=== PATIENT | female | born 1945 | race Caucasian/White ===

== ENCOUNTER → 2016-03-24 | Outpatient (CLI) | payer MEDICARE ==
--- NOTE | 2016-03-27 09:10 | MM ---
Reason for exam: screening (asymptomatic). Last mammogram was performed 1 year ago. History: Patient is postmenopausal, history of other cancer, and is nulliparous. 2 benign excisional biopsies of the right breast, 1966. Physical Findings: A clinical breast exam by your physician is recommended on an annual basis and results should be correlated with mammographic findings. MG 3D Screening Mammo W/Cad Bilateral CC and MLO view(s) were taken. Prior study comparison: March 15, 2015, bilateral MG screening mammo w CAD. March 13, 2014, bilateral MG screening mammo w CAD. The breast tissue is heterogeneously dense. This may lower the sensitivity of mammography. Finding: There are typically benign calcifications. There is no discrete abnormality. No significant changes in finding since March 15, 2015 and March 13, 2014. ASSESSMENT: Benign, BI-RAD 2 RECOMMENDATION: Routine screening mammogram of both breasts in 1 year.
== END | disposition home or self-care (01) ==
LOC: RADMAMWWP 10:17
PROVIDERS: ATTEND Family Medicine
DX: Z12.31 Encounter for screening mammogram for malignant neoplasm of breast (principal)
CPT/HCPCS: 77052; 77063; G0202

== ENCOUNTER → 2016-09-22 | Outpatient (CLI) | payer MEDICARE ==
--- NOTE | 2016-09-22 13:38 | MR ---
EXAMINATION TYPE: MR knee LT wo con DATE OF EXAM: 09/22/2016 1:29 PM COMPARISON: NONE HISTORY: lt knee pain TECHNIQUE: Multiplanar, multiecho imaging of the left knee is performed without IV contrast. FINDINGS: There is only a small amount of joint fluid. There is grade I to II chondromalacia involving the patellar apex. There is grade II to III chondroma lacia involving the weightbearing surface of the medial femoral condyle. There is grade IV chondromal acia involving the weightbearing surface of the lateral femoral condyle. Both menisci are unremarkable. Both the anterior and the posterior cruciate ligaments are intact. The medial and the lateral collateral ligament complexes are intact. The iliotibial band insertion no rmally upon Gerdy's tubercle. The popliteus muscle and tendon are normal. Both quadriceps and patellar tendons are normal. There is minimal swelling in the Hoffa fat space. IMPRESSION: 1. CHONDROMALACIA DESCRIBED. THERE IS A BILOBED PSEUDOCYST ASSOCIATED WITH THE LATERAL MENISCUS. 2. NO EVIDENCE OF MENISCAL OR LIGAMENTOUS TEAR.
== END | disposition home or self-care (01) ==
LOC: RADMRIMAIN 12:29
PROVIDERS: ATTEND Orthopaedic Surgery
DX: M94.262 Chondromalacia, left knee (principal); M25.862 Other specified joint disorders, left knee

== ENCOUNTER → 2017-04-13 | Outpatient (CLI) | payer MEDICARE ==
--- NOTE | 2017-04-16 10:03 | MM ---
Reason for exam: screening (asymptomatic). Last mammogram was performed 1 year and 1 month ago. History: Patient is postmenopausal, history of other cancer, and is nulliparous. 2 benign excisional biopsies of the right breast, 1966. Physical Findings: A clinical breast exam by your physician is recommended on an annual basis and results should be correlated with mammographic findings. MG 3D Screening Mammo W/Cad Bilateral CC and MLO view(s) were taken. Prior study comparison: March 24, 2016, bilateral MG 3d screening mammo w/cad. March 15, 2015, bilateral MG screening mammo w CAD. The breast tissue is heterogeneously dense. This may lower the sensitivity of mammography. Finding: There are typically benign dystrophic calcifications in both breasts. There is no discrete abnormality. ASSESSMENT: Benign, BI-RAD 2 RECOMMENDATION: Routine screening mammogram of both breasts in 1 year.
== END | disposition home or self-care (01) ==
LOC: RADMAMWWP 09:18
PROVIDERS: ATTEND Family Medicine
DX: Z12.31 Encounter for screening mammogram for malignant neoplasm of breast (principal)
CPT/HCPCS: 77063; 77067

== ENCOUNTER 2017-06-01 09:28 | Day surgery (SDC) | payer MEDICARE ==
[2017-05-31 09:18] VITALS: BMI 32.1
[~2017-06-01 09:28] MED LIST: LACTATED RINGERS 1,000 ML IV ONE; LIDOCAINE 1% 20 ML VIAL (10MG/ML) FOR IV START INTRADERMA PRN
[2017-06-01 09:43] VITALS: RESP 16
[2017-06-01 09:54] VITALS: TEMP 98.4
[2017-06-01] MEDS ORDERED: PROPOFOL 10 MG/ML 20 ML VIAL IV ONE (10:49)
--- NOTE | 2017-06-01 11:06 | P.PCN ---
Date of Procedure: 06/01/17 Procedure(s) Performed: BRIEF HISTORY: Patient is a 72-year-old pleasant white female, scheduled for an elective colonoscopy as a part of as a part of evaluation of prior history of colon polyps. Last colonoscopy was 5 years ago. PROCEDURE PERFORMED: Colonoscopy. PREOPERATIVE DIAGNOSIS: History of colon polyps. IV sedation per Anesthesia. PROCEDURE: After informed consent was obtained, the patient, was brought into the endoscopy unit. IV sedation was administered by Anesthesia under continuous monitoring. Digital rectal examination was normal. Initially the Olympus CF- 160 flexible video colonoscope was then inserted in the rectum, gradually advanced into the cecum without any difficulty. Careful examination was performed as the scope was gradually being withdrawn. Ileocecal valve and the appendiceal orifice were visualized and appeared normal. Prep was excellent. Mucosa of the cecum, ascending colon, transverse colon, descending colon, sigmoid colon, and rectum appeared normal. Scattered sigmoid diverticulosis seen. Retroflexion was performed in the rectum and no lesions were seen. The patient tolerated the procedure well. IMPRESSION: Normal-appearing colon from rectum to cecum with no evidence of colorectal neoplasia. Scattered sigmoidal diverticula cyst. RECOMMENDATIONS: Findings of this examination were discussed with the patient as well as a family. She was advised to have a repeat surveillance colonoscopy in 5 years from now because of the prior history of colon polyps .
[2017-06-01 11:44] VITALS: BP 170/80; PULSE 75
== END 2017-06-01 12:03 | disposition home or self-care (01) ==
LOC: ORWHC2ENDO 09:28
PROVIDERS: ATTEND Internal Medicine Gastroenterology
DX: Z12.11 Encounter for screening for malignant neoplasm of colon (principal); K57.30 Diverticulosis of large intestine without perforation or abscess without bleeding; M19.90 Unspecified osteoarthritis, unspecified site; E07.9 Disorder of thyroid, unspecified; I10 Essential (primary) hypertension; E78.5 Hyperlipidemia, unspecified; Z86.010 Personal history of colon polyps; Z79.899 Other long term (current) drug therapy; Z87.891 Personal history of nicotine dependence
CPT/HCPCS: J2704; G0105; 45378

== ENCOUNTER → 2017-12-21 | Outpatient (CLI) | payer MEDICARE ==
--- NOTE | 2017-12-21 11:49 | XR ---
EXAMINATION TYPE: XR chest 2V DATE OF EXAM: 12/21/2017 COMPARISON: NONE TECHNIQUE: PA and lateral views submitted. HISTORY: Cough and congestion FINDINGS: The lungs are clear and there is no pneumothorax, pleural effusion, or focal pneumonia. No overt fa ilure. Atherosclerotic change aorta. Arthropathy shoulders. Degenerative change of the spine. IMPRESSION: 1. No acute process.
== END | disposition home or self-care (01) ==
LOC: RADXRMAIN 11:26
PROVIDERS: ATTEND Family Medicine
DX: R06.02 Shortness of breath (principal); R05 Cough
CPT/HCPCS: 71046

== ENCOUNTER → 2018-06-03 | Outpatient (CLI) | payer MEDICARE ==
--- NOTE | 2018-06-04 13:59 | MM ---
Reason for exam: screening (asymptomatic). Last mammogram was performed 1 year and 2 months ago. History: Patient is postmenopausal, history of other cancer, and is nulliparous. 2 benign excisional biopsies of the right breast, 1965. Physical Findings: A clinical breast exam by your physician is recommended on an annual basis and results should be correlated with mammographic findings. MG 3D Screening Mammo W/Cad Bilateral CC and MLO view(s) were taken. Prior study comparison: April 13, 2017, bilateral MG 3d screening mammo w/cad. March 24, 2016, bilateral MG 3d screening mammo w/cad. The breast tissue is heterogeneously dense. This may lower the sensitivity of mammography. Benign appearing bilateral calcifications. No suspicious abnormality. No significant changes when compared with prior studies. ASSESSMENT: Benign, BI-RAD 2 RECOMMENDATION: Routine screening mammogram of both breasts in 1 year.
== END | disposition home or self-care (01) ==
LOC: RADMAMWWP 11:28
PROVIDERS: ATTEND Family Medicine
DX: Z12.31 Encounter for screening mammogram for malignant neoplasm of breast (principal)
CPT/HCPCS: 77063; 77067

== ENCOUNTER → 2018-07-22 | Outpatient (CLI) | payer MEDICARE ==
--- NOTE | 2018-07-22 13:02 | XR ---
EXAMINATION TYPE: XR Hip Bilateral Complete DATE OF EXAM: 07/22/2018 CLINICAL HISTORY: pain TECHNIQUE: AP and frogleg views of the bilateral hips are obtained. COMPARISON: None. FINDINGS: There is no acute fracture/dislocation evident. The joint space appears moderately narro wed.. The overlying soft tissue appears unremarkable. IMPRESSION: 1. There is no acute fracture or dislocation. ICD 10 NO FRACTURE, INITIAL EVALUATION
== END | disposition home or self-care (01) ==
LOC: RADXRMAIN 12:01
PROVIDERS: ATTEND Family Medicine
DX: M25.551 Pain in right hip (principal)
CPT/HCPCS: 73521

== ENCOUNTER → 2018-08-05 | Outpatient (CLI) | payer MEDICARE ==
--- NOTE | 2018-08-05 12:56 | XR ---
EXAMINATION TYPE: XR knee complete bilateral DATE OF EXAM: 08/05/2018 COMPARISON: NONE HISTORY: Pain TECHNIQUE: Four views are submitted. FINDINGS: There is moderate to severe bilateral arthropathy with most marked findings involving the patellofemo ral joints. There is small suprapatellar bursal fluid collections bilaterally. No erosive changes. No evidence of acute fracture. IMPRESSION: 1. Moderate to severe arthropathy with a greater involvement of the patellofemoral joints bilaterally . 2. Small suprapatellar bursal fluid collections.
== END | disposition home or self-care (01) ==
LOC: RADXRMAIN 12:14
PROVIDERS: ATTEND Family Medicine
DX: M17.0 Bilateral primary osteoarthritis of knee (principal)

== ENCOUNTER → 2018-09-10 | Outpatient (CLI) | payer MEDICARE ==
--- NOTE | 2018-09-10 15:43 | NM ---
EXAMINATION TYPE: NM bone scan whole body DATE OF EXAM: 09/10/2018 COMPARISON: Bilateral hip and knee radiographs of July 2018 HISTORY: Bilateral hip and knee pain Delayed whole-body scanning was performed following the injection of 24.5 mCi Tc 99m MDP. Images acq uired 3 hours post injection. FINDINGS: There is focal radiotracer uptake within the femoral heads and femoral acetabular joints, right great er than left. There is also focal radiotracer accumulation within the left L5 vertebral body. Focal a ccumulation within the acromioclavicular joints, sternoclavicular joints (right greater than left), u pper and mid thoracic spine, knees, mid feet, wrists, sacroiliac joints, and visualized elbow joints are all likely on a degenerative basis. Accumulation within the right metatarsal phalangeal joint is also likely degenerative. IMPRESSION: 1. Focal radiotracer accumulation within the femoral acetabular joints, right greater than left, is l ikely on a degenerative basis with arthropathy seen on the radiographs of 07/22/2018 however given radi otracer accumulation is most focal within the hips MRI could be performed for further evaluation. 2. Left L5 vertebral body uptake may also be on the basis of degenerative disc disease however correl ation with lumbar spine radiographs is recommended. 3. Degenerative arthropathy within the axial and appendicular skeleton including the knees and an ove rall symmetric distribution.
== END | disposition home or self-care (01) ==
LOC: RADNMMAIN 10:17
PROVIDERS: ATTEND Physical Medicine & Rehabilitation
DX: M12.88 Other specific arthropathies, not elsewhere classified, other specified site (principal); M12.862 Other specific arthropathies, not elsewhere classified, left knee; M12.861 Other specific arthropathies, not elsewhere classified, right knee; R93.7 Abnormal findings on diagnostic imaging of other parts of musculoskeletal system
CPT/HCPCS: 78306; A9503

== ENCOUNTER → 2019-11-06 | Outpatient (CLI) | payer MEDICARE ==
--- NOTE | 2019-11-07 10:02 | MM ---
Reason for exam: screening (asymptomatic). Last mammogram was performed 1 year and 5 months ago. History: Patient is postmenopausal, history of other cancer, and is nulliparous. 2 benign excisional biopsies of the right breast, 1965. Physical Findings: A clinical breast exam by your physician is recommended on an annual basis and results should be correlated with mammographic findings. MG 3D Screening Mammo W/Cad Bilateral CC, MLO, and XCCL view(s) were taken. Prior study comparison: June 03, 2018, bilateral MG 3d screening mammo w/cad. April 13, 2017, bilateral MG 3d screening mammo w/cad. The breast tissue is heterogeneously dense. This may lower the sensitivity of mammography. Stable benign calcifications. There is no discrete abnormality. No significant changes when compared with prior studies. ASSESSMENT: Benign, BI-RAD 2 RECOMMENDATION: Routine screening mammogram of both breasts in 1 year.
== END | disposition home or self-care (01) ==
LOC: RADMAMWWP 14:10
PROVIDERS: ATTEND Family Medicine
DX: Z12.31 Encounter for screening mammogram for malignant neoplasm of breast (principal)
CPT/HCPCS: 77063; 77067

== ENCOUNTER → 2020-02-25 | Outpatient (CLI) | payer MEDICARE ==
[2020-02-25 13:42] VITALS: BP 135/79; PULSE 72; RESP 16; TEMP 98.2
--- NOTE | 2020-02-25 14:24 | P.PAINCN ---
History of Present Illness - Reason for Consult Consult date: 02/25/20 - History of Present Illness This is 75 years old female, with chronic history of severe low back pain with radiation to the buttock area and posterior lateral aspect of her lower extremity, she is diagnosed with lumbar spondylosis and lumbar facet arthropathy, and lumbar degenerative disc disease and lumbar foraminal stenosis, patient hasn't diagnostic medial branch block in the lumbar area at [facility], 2 , she get more than 70% improvement of her low back pain after each block, and she was referred to [facility] to have radiofrequency thermocoagulation of the medial branch lumbar area, patient had 5 days of pain relief after each block, she denies any motor or sensory deficit she denies any fever or night sweats and she had no change in the bowel movement or urination, she continued to ambulate on her own using cane or walker Past Medical History Past Medical History: GERD/Reflux, Hyperlipidemia, Hypertension, Osteoarthritis (OA), Thyroid Disorder Additional Past Medical History / Comment(s): hx goiter History of Any Multi-Drug Resistant Organisms: None Reported Past Surgical History: Breast Surgery, Cholecystectomy Additional Past Surgical History / Comment(s): surgery for ectopic , surgery to remove fibroids from uterus, cyst removed from rt breast Past Anesthesia/Blood Transfusion Reactions: Motion Sickness Additional Past Anesthesia/Blood Transfusion Reaction / Comm: motion sickness when younger, Past Psychological History: No Psychological Hx Reported Smoking Status: Former smoker Past Alcohol Use History: Rare Additional Past Alcohol Use History / Comment(s): quit smoking age late 20's, started smoking age 22 Past Drug Use History: None Reported - Past Family History Brother(s) Family Medical History: Cancer Medications and Allergies Home Medications Medication Instructions Recorded Confirmed Type Levothyroxine Sodium [Synthroid] 125 mcg PO DAILY 05/31/17 06/01/17 History Losartan [Cozaar] 50 mg PO BID 05/31/17 06/01/17 History Multivitamins, Thera [Multivitamin 1 tab PO DAILY 05/31/17 06/01/17 History (formulary)] Simvastatin [Zocor] 20 mg PO HS 05/31/17 06/01/17 History Allergies Allergy/AdvReac Type Severity Reaction Status Date / Time No Known Allergies Allergy Verified 06/01/17 09:45 Physical Exam Vitals: Vital Signs Temp Pulse Resp BP Pulse Ox 12/09/20 13:24 98.2 F 72 16 135/79 97 Intake and Output 02/24/20 02/25/20 02/25/20 22:59 06:59 14:59 Other: Weight 89.811 kg Physical Examinations : -Constitutiona : Cooperative , not in acute distress . -HEENT : nech : supple , no Lymphadenopathy , normal thyroid size . : eyes : no ptosis , no icterus, no photophobia . - neurologic : Cranial nerve II to XII intact , no focal neurological deffecit . -psychatric : alert , oriented X 3 , appropriate affect , intact judgment and insight . -Lymphatic : no Lymphadenopathy . - musculoskeltal : Lumber spine moter stegnth lower extremities ,thigh and legs 5/5 Right side , 5/5 Left side deep tendon reflexes : normal Knee Jerk , normal ankle Jerk lumber facet Loading Test =positive Right , positive Left Range of motion of the lumbar spine Flexion 30 degrees, extension 10 degrees strait leg raising test = positive at 45 degree Fabere test= positive Right , and positive LT . Sever tenderness over the Sacroiliac joint on the Right , and mild tenderness Left sides Gaenslen test= positive right ,and positive left . Seated flexion test= positive right ,and positive Left . Results Comments: MRI of the lumbar spine multilevel lumbar degenerative disc disease multilevel lumbar spondylosis and multilevel lumbar foraminal stenosis Assessment and Plan Plan: Assessment and plan=1-lumbar spondylosis with lumbar facet arthropathy without myelopathy. 2-lumbar degenerative disc disease. 3-lumbar foraminal stenosis. Patient had diagnostic medial branch block lumbar area done at the [facility] x2 , get more than 70% improvement of her low back pain after each block and she would be good candidate to have RFA of the medial branch lumbar area, he shouldn't will be scheduled to have RFA at L3, L4, L5 bilaterally Because of COVID 19 epidemic, she'll wished to delay the procedure for a few weeks Time with Patient: Greater than 30 PQRS Measure Charge Sheet Measure #130: Documentation of Current Meds in Medical Chart: Patient's medications documented in chart Measure #226: Tobacco Use: Screen & Cessation Intervention: Pt not a tobacco user Measure #111: Pneumonia Vaccination: Pneumococcal vaccine administered or previously received Measure #47: Advance Care Plan: Advance care planning discussed & documented, pt chose/unable to give Measure #412: Opioid Treatment Agreement: No documentation of signed opioid treatment agreement Measure #408: Opioid Therapy Follow-up Evaluation: Patient had NO f/u eval minimum every 3 months during opioid therapy Measure #317: Preventitive Care & Scrn High Bld Press & F/U: Normal blood pr essure, f/u not required Measure #128: Body Mass Index (BMI) Screening & Follow-up: BMI documented ABOVE normal parameters - f/u documented Measure #131: Pain Assessment & Follow-up: Pain positive & plan documented, Follow-up scheduled Measure #431: Unhealthy Alcohol Use Preventative Care & Scrn: Patient not identified as an unhealthy alcohol user PQRS Narrative: Smoking Status Former smoker Blood Pressure 135/79 Pain Intensity [Lower Back] 7 Hx Alcohol Use (MH) No Home Medications: Ambulatory Orders Levothyroxine Sodium [Synthroid] 125 mcg PO DAILY 05/31/17 Losartan [Cozaar] 50 mg PO BID 05/31/17 Multivitamins, Thera [Multivitamin (formulary)] 1 tab PO DAILY 05/31/17 Simvastatin [Zocor] 20 mg PO HS 05/31/17
== END | disposition home or self-care (01) ==
LOC: PNWHC3 13:03
PROVIDERS: ATTEND Specialist
DX: M48.061 Spinal stenosis, lumbar region without neurogenic claudication (principal); M51.36 Other intervertebral disc degeneration, lumbar region; M47.816 Spondylosis without myelopathy or radiculopathy, lumbar region; I10 Essential (primary) hypertension; E07.9 Disorder of thyroid, unspecified; Z87.891 Personal history of nicotine dependence; Z79.890 Hormone replacement therapy; Z79.899 Other long term (current) drug therapy
CPT/HCPCS: 99211

== ENCOUNTER → 2020-05-03 | Outpatient (CLI) | payer MEDICARE ==
[2020-05-03 13:44] VITALS: BP 144/84; PULSE 86; RESP 16; TEMP 98
--- NOTE | 2020-05-03 14:42 | P.PN ---
Subjective Progress Note Date: 05/03/20 This is a follow-up visit for this 75 years old female with a chronic history of severe low back pain, he is diagnosed with lumbar spondylosis with lumbar facet arthropathy without myelopathy, and lumbar degenerative disc disease, patient had diagnostic medial branch block lumbar area done at the [facility] and turned x2 , and she got excellent pain relief after each block she had 100% immediate relief of her low back pain after each block, but the pain relief was for short-term only, she supposed RFA of the medial branch lumbar area but she was concerned about Covid 19 infection, for this reason patient did not have the RFA done, and she is here today to schedule it and to have a discussion about the risk versus benefit of the RFA of the medial branch number area, she denies any fever or night sweats she denies any motor or sensory deficits she continue to use Neurontin 600 mg twice a day she denies any side effect of the medication Objective - Vital Signs Vital signs: Vital Signs Temp 98.0 F 05/03/20 13:42 Pulse 86 05/03/20 13:42 Resp 16 05/03/20 13:42 BP 144/84 05/03/20 13:42 Pulse Ox 98 05/03/20 13:42 - Exam -Constitutiona : Cooperative , not in acute distress . -HEENT : nech : supple , no Lymphadenopathy , normal thyroid size . : eyes : no ptosis , no icterus, no p hotophobia . - neurologic : Cranial nerve II to XII intact , no focal neurological deffecit . -psychatric : alert , oriented X 3 , appropriate affect , intact judgment and insight . -Lymphatic : no Lymphadenopathy . - musculoskeltal : Lumber spine moter stegnth lower extremities ,thigh and legs 5/5 Right side , 5/5 Left side deep tendon reflexes : normal Knee Jerk , normal ankle Jerk lumber facet Loading Test =positive Right , positive Left Range of motion of the lumbar spine Flexion 30 degrees, extension 10 degrees strait leg raising test = positive at 45 degree Fabere test= positive Right , and positive LT . Sever tenderness over the Sacroiliac joint on the Right , and mild tenderness Left sides Gaenslen test= positive right ,and positive left . Seated flexion test= positive right ,and positive Left . Assessment and Plan Plan: MRI of the lumbar spine multilevel lumbar degenerative disc disease multilevel lumbar spondylosis and multilevel lumbar foraminal stenosis Assessment and plan=1-lumbar spondylosis with lumbar facet arthropathy without myelopathy. 2-lumbar degenerative disc disease. 3-lumbar foraminal stenosis. Patient had diagnostic medial branch block lumbar area done at the [facility] x2 , she got 100% immediate relief of her low back pain after each block and she would be good candidate to have RFA of the medial branch lumbar area. She will be scheduled to have RFA at L3, L4, L5 bilaterally PQRS Measure Charge Sheet Measure #130: Documentation of Current Meds in Medical Chart: Patient's medications documented in chart Measure #226: Tobacco Use: Screen & Cessation Intervention: Pt not a tobacco user Measure #111: Pneumonia Vaccination: Pneumococcal vaccine administered or previously received Measure #47: Advance Care Plan: Advance care planning discussed & documented, pt chose/unable to give Measure #412: Opioid Treatment Agreement: No documentation of signed opioid treatment agreement Measure #408: Opioid Therapy Follow-up Evaluation: Patient had NO f/u eval minimum every 3 months during opioid therapy Measure #317: Preventitive Care & Scrn High Bld Press & F/U: 144/84 elevated blood pressure, f/u with her primary care Measure #128: Body Mass Index (BMI) Screening & Follow-up: BMI documented ABOVE normal parameters - f/u documented Measure #131: Pain Assessment & Follow-up: Pain positive & plan documented, Follow-up scheduled Measure #431: Unhealthy Alcohol Use Preventative Care & Scrn: Patient not identified as an unhealthy alcohol user PQRS Narrative: Time with Patient: Less than 30
== END | disposition home or self-care (01) ==
LOC: PNWHC3 13:32
PROVIDERS: ATTEND Specialist
DX: M48.061 Spinal stenosis, lumbar region without neurogenic claudication (principal); M51.36 Other intervertebral disc degeneration, lumbar region; M47.816 Spondylosis without myelopathy or radiculopathy, lumbar region
CPT/HCPCS: 99211

== ENCOUNTER 2020-06-11 09:18 | Day surgery (SDC) | payer MEDICARE ==
[2020-06-10 10:57] VITALS: BMI 32.8
[~2020-06-11 09:18] MED LIST changes: -LACTATED RINGERS 1,000 ML IV ONE; +LACTATED RINGERS 1,000 ML IV SCH; -LIDOCAINE 1% 20 ML VIAL (10MG/ML) FOR IV START INTRADERMA PRN
[2020-06-11 09:47] VITALS: TEMP 97.9
[2020-06-11] MEDS ORDERED: LIDOCAINE 1% (10MG/ML) FOR IV START INTRADERMA ONE (09:52)
[2020-06-11] MEDS ORDERED: fentaNYL (PF) 50 MCG/ML 2 ML AMP ONE (09:57)
[2020-06-11] MEDS ORDERED: MIDAZOLAM 2 MG/2 ML VIAL ONE (09:57)
[2020-06-11] MEDS ORDERED: LIDOCAINE 1% INJ 10MG/ML (20 ML MDV) ONE (09:57)
[2020-06-11] MEDS ORDERED: TRIAMCINOLONE ACETONIDE 40 MG/ML 1 ML VIAL ONE (09:57)
[2020-06-11] MEDS ORDERED: ROPIVACAINE 5MG/ML 20ML VIAL ONE (09:57)
--- NOTE | 2020-06-11 10:38 | P.PCN ---
Date of Procedure: 06/11/20 Surgeon: García Gutierrez Pathology: none sent Condition: stable Disposition: PACU Description of Procedure: PREOPERATIVE DIAGNOSIS: Lumbar spondylosis without myelopathy, morbid obesity POSTOPERATIVE DIAGNOSIS: Lumbar spondylosis without myelopathy,morbid obesity PROCEDURES : Bilateral Radiofrequency thermocoagulation L4-L5, and L5-S1 medial branch, with fluoroscopic guidance ANESTHESIA: Local with lidocaine 1% and IV moderate conscious sedation by the anesthesia Department Physician:García Gutierrez MD EBL: Minimal PROCEDURE INDICATION: The patient with low back pain secondary to lumbar facet arthropathy who had more than 50% relief of her pain with previous diagnostic lumbar medial branch block with bupivacaine. PROCEDURE DESCRIPTION / TECHNIQUE: The patient was seen and identified in the preoperative area. Risks, benefits, complications, including but not limited to risk of infection ,bleeding , allergic reactions to the medications and no complete pain relief , and alternatives were discussed with the patient, the patient agreed to proceed with the procedure and signed the consent. IV was started. Vital signs remained stable throughout the procedure. Patient was taken to the OR and time out was completed. The patient was placed in the prone position on the procedure table. The lumber area was prepped and draped in the usual sterile fashion. . Vital signs were closely monitored during the procedure .IV sedation was used during the procedure to decrease patients anxiety. The target points were identified as follows: For the L5-S1 level which corresponds to the dorsal ramus of L5 the target point was at the superior medial aspect of the sacral ala on both sides of the spine on the AP view of fluoroscopy and for the L3, and L4 medial branches the target points were at the connection between the transverse process and the superior articular process of L4, and L5 vertebra respectively on the oblique view of fluoroscopy. skin was marked, and localized with 1% lidocaineat these points. Subsequently, an 18 -ad radiofrequency needles with a 10-mm curved active tips were advanced guided by fluoroscopy to each of the target points mentioned above in a superior medial direction to get the active tips as parallel as possible to the medial branches tracks. AP, oblique, and lateral views of fluoroscopy were used to verify needle tips position. Each level then underwent motor testing at 2.5 Hz and 0 to 3 volt with local stimulation, but no radicular symptoms down the legs. I then injected 1 mL of lidocaine 1% in each needle before starting radiofrequency thermocoagulation at 80 degrees celsius for 90 seconds. After that I injected 1 ml of PF Ropivacaine 0.5%(3 mls) with 40 mg of Kenalog, 1 mL of this mixture was given in each needle before taking the needles out intact. The same procedure was repeated on the opposite side. At the end of the procedure, the skin was cleansed and bandages were applied. A copy of needle placement fluoroscopy was saved on the C-arm machine. COMPLICATIONS: No acute complications. DISPOSITION / PLANS: The patient was placed in a supine position and transferred to the recovery area in a stable condition for observation and was discharged from the recovery room after meeting discharge criteria. Home discharge instructions given to the patient by the staff. The patient was reexamined prior to discharge. The patient will schedule a follow up in the clinic in 2-4 weeks.
[2020-06-11] MEDS ORDERED: IV FLUID CONTINUATION 1,000 ML IV ONE (10:43)
[2020-06-11 10:46] VITALS: RESP 16
[2020-06-11] MEDS ORDERED: ONDANSETRON 4 MG/2 ML VIAL ONE (10:46)
[2020-06-11] MEDS ORDERED: ONDANSETRON 4 MG/2 ML VIAL IVP ONE (10:48)
--- NOTE | 2020-06-11 10:54 | FL ---
EXAMINATION TYPE: FL guided pain mgmt statistic DATE OF EXAM: 06/11/2020 HISTORY: Fluoroscopy time 52 seconds of fluoroscopy provided. IMPRESSION: 1. Fluoroscopy time.
[2020-06-11 11:00] VITALS: BP 138/82; PULSE 73
== END 2020-06-11 11:16 | disposition home or self-care (01) ==
LOC: ORPAIN 09:18
PROVIDERS: ATTEND Anesthesiology
DX: M47.816 Spondylosis without myelopathy or radiculopathy, lumbar region (principal); E66.01 Morbid (severe) obesity due to excess calories; Z68.34 Body mass index [BMI] 34.0-34.9, adult; I10 Essential (primary) hypertension; E78.5 Hyperlipidemia, unspecified; E07.9 Disorder of thyroid, unspecified; M19.90 Unspecified osteoarthritis, unspecified site; K21.9 Gastro-esophageal reflux disease without esophagitis; Z79.1 Long term (current) use of non-steroidal anti-inflammatories (NSAID); Z79.890 Hormone replacement therapy; Z79.899 Other long term (current) drug therapy
CPT/HCPCS: 64635; 64636; J2250; J3301; J2405; J2001; J3010; J2795

== ENCOUNTER → 2020-07-26 | Outpatient (CLI) | payer MEDICARE ==
[2020-07-26 13:24] VITALS: BP 134/75; PULSE 95; RESP 16; TEMP 98.2
--- NOTE | 2020-07-26 13:58 | P.PN ---
Subjective Progress Note Date: 07/26/20 Noemi presents for follow-up today after having a radiofrequency ablation of the lumbar spine. She reports that she still having same type of pain in the low back without any radiation into the lower extremities. The pain she describes as aching which is worse with standing and sitting, worse with standing from a seated position. She denies any radicular symptoms down her leg. She has chronic right leg pain over the calf and boss region which she attributes to injuries a child. Reports that the medial branch injections be performed prior to the radiofrequency ablation were helpful. She reports she has some difficulty remembering that time because of the code endemic. Overall unfortunately in the radiofrequency ablation lumbar spine has not been successful. We will not repeat that moving forward. He currently continues to use a walker for ambulation. Review of Systems: Denies any New chest pain, short of breath, Nausea/vomitting, abdominal pain, bowel or bladder incontinence, or any overt new neurologic symptoms in the upper or lower extremities outside of what is noted in the HPI Objective - Vital Signs Vital signs: Vital Signs Temp 98.2 F 07/26/20 13:22 Pulse 95 07/26/20 13:22 Resp 16 07/26/20 13:22 BP 134/75 07/26/20 13:22 Pulse Ox 98 07/26/20 13:22 - Exam General: Awake and alert oriented 3 no distress, morbidly obese Respiratory exam: No audible wheezing no accessory muscle usage Cardiovascular exam: regular rate, palpable bilateral pulses, no lower extremity edema Cervical spine: Normal alignment, Spurling's negative, facet loading negative, Shipping Agent strength is 5/5, combs negative Lumbar spine: Loss of lumbar lordosis, normal alignment, tender to palpation over bilateral paraspinal muscles, facet loading is positive bilaterally. Straight leg raise is negative. Limited range of motion due to pain with flexion, extension and side bending. Sacroiliac joints: Under to palpation over the bilateral SI joints, Dioni test positive bilateral, Gaenslen test positive bilateral Neuro exam: Normal sensation in bilateral upper extremities, deep tendon reflexes are 2+ bilateral upper extremities. Normal sensation in bilateral lower extremities. 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 I will offer her a SI joint injection bilaterally. We discussed injection in detail. I've given her information about injection per her request. We discussed that the injection uses a local anesthetic and steroid solution and may increase her blood sugars slightly. He wants to move forward with the injection in a few weeks. I've offered to do it whenever she is comfortable moving forward. We will follow-up the patient has needed. I have spent 24 minutes on patient care today. The time was used to review the medical records including relevant urine studies and Prescription history (MAPs), review of the available imaging, evaluation and examination of the patient, coordination of care with the medical staff and if applicable referring physicians, as well as creation of the medical record. Maps were checked and appropriate
== END ==
LOC: PNWHC3 13:11
PROVIDERS: ATTEND Anesthesiology
DX: M47.26 Other spondylosis with radiculopathy, lumbar region (principal); M46.1 Sacroiliitis, not elsewhere classified; E66.01 Morbid (severe) obesity due to excess calories; Z68.32 Body mass index [BMI] 32.0-32.9, adult; Z87.891 Personal history of nicotine dependence
CPT/HCPCS: 99211

== ENCOUNTER → 2020-07-30 | Outpatient (CLI) | payer MEDICARE ==
--- NOTE | 2020-07-30 15:44 | XR ---
EXAMINATION TYPE: XR chest 2V DATE OF EXAM: 07/30/2020 COMPARISON: 12/21/2017 HISTORY: Shortness of breath TECHNIQUE: Frontal and lateral views of the chest are obtained. FINDINGS: Scattered senescent parenchymal changes noted. Hyperinflation compatible with COPD. No evidence for infiltrate. No evidence for atelectasis. Heart size is stable. Mediastinal structures are stable and grossly unremarkable. No evidence for hilar prominence. Degenerative changes dorsal spine. IMPRESSION: 1. No evidence for acute pulmonary disease.
== END | disposition home or self-care (01) ==
LOC: RADXRMAIN 15:08
PROVIDERS: ATTEND Family Medicine
DX: R06.02 Shortness of breath (principal)
CPT/HCPCS: 71046

== ENCOUNTER 2020-08-17 12:49 | Day surgery (SDC) | payer MEDICARE ==
[2020-08-17 13:05] VITALS: RESP 16; TEMP 98.2
[2020-08-17] MEDS ORDERED: LACTATED RINGERS 1,000 ML IV ONE (13:16)
[2020-08-17] MEDS ORDERED: methylPREDNISolone ACETATE 40 MG/ML 1 ML VIAL ONE (13:42)
[2020-08-17] MEDS ORDERED: MIDAZOLAM 2 MG/2 ML VIAL ONE (13:42)
[2020-08-17] MEDS ORDERED: fentaNYL (PF) 50 MCG/ML 2 ML AMP ONE (13:42)
[2020-08-17] MEDS ORDERED: ROPIVACAINE 5MG/ML 20ML VIAL ONE (13:42)
--- NOTE | 2020-08-17 13:57 | P.PCN ---
Date of Procedure: 08/17/20 Procedure(s) Performed: Procedure= bilateral sacroiliac joints steroid injection under fluoroscopy guidance (fluoroscopy image stored on file in the radiology Department ) Preoperative diagnosis= 1-bilateral sacroiliitis 2-lumbar spondylosis with facet arthropathy Postoperative diagnosis=Same as preop Diagnosis . Complication = none Condition= stable Anesthesia= moderate sedation with intravenous Versed 2 mg , and fentanyl 50 micrograms . Indication for the procedure= patient complaining of low back pain , examination was positive for severe tenderness over the sacroiliac joints bilaterally and patient diagnosed with sacroiliitis, for this reason she was good candidate for sacroiliac joint steroid injection. Description of the procedure= procedure risk and benefits discussed with the patient, including but not limited, risk of infection and bleeding, and ALLERGIC reaction to the medication and not complete pain relief and patient agreed with the preceding patient taken to the operating room, placed in prone position or standard monitors applied to the patient then after induction of anesthesia back prepped with chlorhexidine 3 times , Then under strict sterile technique, first I did the right sacroiliac joint the which was identified under fluoroscopy guidance been local infiltration of the skin and subcu interstitial with lidocaine 1% then 22-gauge Quincke Needle advanced slowly under fluoroscopy and placed in the right sacroiliac joint needle placement confirmed with AP and oblique and lateral view and after appropriate needle placement confirmed and after negative aspiration, or heme , then Ropivacaine 0.5% 3 mL, and 30 mg of Depo-Medrol mixed together and injected in the right sacroiliac joint after negative aspiration patient tolerated the procedure well without any complication. Then the left sacroiliac joint steroid injection done under strict sterile technique local infiltration of the skin and subcu interstitial at the location of the left sacroiliac joint then a 22-gauge Quincke Needle advanced slowly under fluoroscopy time placed in the left sacroiliac joint, needle placement confirmed with AP and oblique and lateral view then after appropriate needle placement confirmed and after negative aspiration 0.5% Ropivacaine 3 mL and 30 mg of Depo-Medrol injected in the left sacroiliac joint after negative aspiration patient tolerated the procedure well that any complications and she will follow up in clinic 3 weeks
[2020-08-17] MEDS ORDERED: IV FLUID CONTINUATION 400 ML IV ONE (14:00)
[2020-08-17 14:21] VITALS: BP 121/75; PULSE 74
[2020-08-17] MEDS ORDERED: LACTATED RINGERS 1,000 ML IV SCH (14:25)
--- NOTE | 2020-08-17 14:43 | FL ---
EXAMINATION TYPE: FL guided pain mgmt statistic DATE OF EXAM: 08/17/2020 CLINICAL HISTORY: BIlateral sacroiliac joint pain. TECHNIQUE: Fluoroscopy. COMPARISON: Pain study 06/11/2020. FINDINGS: Fluoroscopic guidance was provided during pain relief procedure performed by Dr. Mcdonald . A total of 8 seconds of fluoroscopic time was utilized during the procedure and two spot images ar e acquired. Images acquired shows needle localization at the bilateral SI joint level. IMPRESSION: As Above.
== END 2020-08-17 14:48 | disposition home or self-care (01) ==
LOC: ORPAIN 12:49
PROVIDERS: ATTEND Specialist
DX: M46.1 Sacroiliitis, not elsewhere classified (principal); M47.816 Spondylosis without myelopathy or radiculopathy, lumbar region
CPT/HCPCS: J2250; J1030; J3010; J2795; G0260; 99152

== ENCOUNTER → 2020-09-27 | Outpatient (CLI) | payer MEDICARE ==
[2020-09-27 13:44] VITALS: BP 130/80; PULSE 86; RESP 20; TEMP 98.4
--- NOTE | 2020-09-27 14:07 | P.PN ---
Subjective Progress Note Date: 09/27/20 This is a follow-up visit for this 75 years old female with a chronic history of severe low back pain, he is diagnosed with lumbar spondylosis with lumbar facet arthropathy without myelopathy, and lumbar degenerative disc disease, patient had RFA medial branch block lumbar area , she continued to have pain in the buttock area bilaterally , recently we did bilateral sacroiliac joint steroid injection which helped her pain for a few weeks , she is complaining of severe low back pain with radiation to the buttock bilaterally which is increased with any activity she deny motor or sensory deficits she continue to use Neurontin 600 mg twice a day she denies any side effect of the medication Physical examination -Constitutiona : Cooperative , not in acute distress . -HEENT : nech : supple , no Lymphadenopathy , normal thyroid size . : eyes : no ptosis , no icterus, no photophobia . - neurologic : Cranial nerve II to XII intact , no focal neurological deffecit . -psychatric : alert , oriented X 3 , appropriate affect , intact judgment and insight . -Lymphatic : no Lymphadenopathy . - musculoskeltal : Lumber spine moter stegnth lower extremities ,thigh and legs 5/5 Right side , 5/5 Left side deep tendon reflexes : normal Knee Jerk , normal ankle Jerk lumber facet Loading Test =positive Right , positive Left Range of motion of the lumbar spine Flexion 30 degrees, extension 10 degrees strait leg raising test = positive at 45 degree Fabere test= positive Right , and positive LT . Sever tenderness over the Sacroiliac joint on the Right , and mild tenderness Left sides Gaenslen test= positive right ,and positive left . Seated flexion test= positive right ,and positive Left Distraction test= positive bilaterally MRI of the lumbar spine multilevel lumbar degenerative disc disease multilevel lumbar spondylosis and multilevel lumbar foraminal stenosis Assessment and plan=1-lumbar spondylosis with lumbar facet arthropathy without myelopathy. 2-lumbar degenerative disc disease. 3-lumbar foraminal stenosis. 4-bilateral sacroiliitis Patient could benefit from bilateral sacroiliac joint steroid injection - PQRS measures = - Patient's medications are documented in the chart. -Tobacco use is negative and counseling.Given. -Patient's has not received pneumococcal vaccine. -Advanced care planning discussed, patient not eligible. -Opiate contract not signed. -Pain positive and follow-up visit/procedure is scheduled. -Patient's blood pressure measured [130/80 ] , and documented in the record ,and patient will follow up with the primary care. -Patient's weight was measured and body mass index [ ] above the, normal limits and counseling was done. and patient instructed to follow-up with the primary care physician. -Patient was not identified as an unhealthy alcohol user Objective - Vital Signs Vital signs: Vital Signs Temp 98.4 F 09/27/20 13:40 Pulse 86 09/27/20 13:40 Resp 20 09/27/20 13:40 BP 130/80 09/27/20 13:40 Pulse Ox 96 09/27/20 13:40
== END ==
LOC: PNWHC3 13:32
PROVIDERS: ATTEND Specialist
DX: M47.816 Spondylosis without myelopathy or radiculopathy, lumbar region (principal); M51.36 Other intervertebral disc degeneration, lumbar region; M48.061 Spinal stenosis, lumbar region without neurogenic claudication; M46.1 Sacroiliitis, not elsewhere classified; Z87.891 Personal history of nicotine dependence
CPT/HCPCS: 99211

== ENCOUNTER → 2020-09-30 | Outpatient (CLI) | payer MEDICARE ==
--- NOTE | 2020-09-30 14:43 | XR ---
EXAMINATION TYPE: XR Hip Bilateral Complete DATE OF EXAM: 09/30/2020 CLINICAL HISTORY: Hip pain TECHNIQUE: AP and frogleg views of the bilateral hip are obtained. COMPARISON: 07/22/2018. FINDINGS: No acute fracture or dislocation of bilateral hips. There are extensive degenerative changes of both hips with subchondral sclerosis and osteophytosis, r ight greater than left. IMPRESSION: Degenerative changes of both hips.
--- NOTE | 2020-09-30 14:45 | XR ---
EXAMINATION TYPE: XR knee complete bilateral DATE OF EXAM: 09/30/2020 CLINICAL HISTORY: Knee pain TECHNIQUE: Three views of the bilateral knee are obtained. COMPARISON: 08/05/2018 FINDINGS: There is subchondral sclerosis tricompartmentally with patellofemoral osteophytosis bilaterally. Bila teral knee joint effusions are seen. No acute fracture or dislocation. IMPRESSION: Degenerative changes of both knees with knee joint effusions.
== END | disposition home or self-care (01) ==
LOC: RADXRMAIN 13:32
PROVIDERS: ATTEND Family Medicine
DX: M16.0 Bilateral primary osteoarthritis of hip (principal); M17.0 Bilateral primary osteoarthritis of knee
CPT/HCPCS: 73521

== ENCOUNTER 2020-10-26 11:44 | Day surgery (SDC) | payer MEDICARE ==
[2020-10-22 12:02] VITALS: BMI 31.4
[2020-10-26 12:58] VITALS: RESP 16; TEMP 98.1
[2020-10-26] MEDS ORDERED: LACTATED RINGERS 1,000 ML IV ONE (13:00)
[2020-10-26] MEDS ORDERED: LIDOCAINE 1% (10MG/ML) FOR IV START INTRADERMA ONE (13:04)
[2020-10-26] MEDS ORDERED: methylPREDNISolone ACETATE 40 MG/ML 1 ML VIAL ONE (13:08)
[2020-10-26] MEDS ORDERED: fentaNYL (PF) 50 MCG/ML 2 ML AMP ONE (13:08)
[2020-10-26] MEDS ORDERED: MIDAZOLAM 2 MG/2 ML VIAL ONE (13:08)
[2020-10-26] MEDS ORDERED: ROPIVACAINE 5MG/ML 20ML VIAL ONE (13:08)
--- NOTE | 2020-10-26 13:18 | P.PCN ---
Date of Procedure: 10/26/20 Procedure(s) Performed: Procedure= Bilateral sacroiliac joints steroid injection under fluoroscopy guidance (fluoroscopy image stored on file in the radiology Department ) Preoperative diagnosis= 1-bilateral sacroiliitis 2-lumbar spondylosis with facet arthropathy Postoperative diagnosis=Same as preop Diagnosis . Complication = none Condition= stable Anesthesia= moderate sedation with intravenous Versed 2 mg , and fentanyl 50 micrograms . Indication for the procedure= patient complaining of low back pain , examination was positive for severe tenderness over the sacroiliac joints bilaterally and patient diagnosed with sacroiliitis, for this reason she was good candidate for sacroiliac joint steroid injection. Description of the procedure= procedure risk and benefits discussed with the patient, including but not limited, risk of infection and bleeding, and ALLERGIC reaction to the medication and not complete pain relief and patient agreed with the preceding patient taken to the operating room, placed in prone position or standard monitors applied to the patient then after induction of anesthesia back prepped with chlorhexidine 3 times , Then under strict sterile technique, first I did the right sacroiliac joint the which was identified under fluoroscopy guidance been local infiltration of the skin and subcu interstitial with lidocaine 1% then 22-gauge Quincke Needle advanced slowly under fluoroscopy and placed in the right sacroiliac joint needle placement confirmed with AP and oblique and lateral view and after appropriate needle placement confirmed and after negative aspiration, or heme , then Ropivacaine 0.5% 3 mL, and 30 mg of Depo-Medrol mixed together and injected in the right sacroiliac joint after negative aspiration patient tolerated the procedure well without any complication. Then the left sacroiliac joint steroid injection done under strict sterile technique local infiltration of the skin and subcu interstitial at the location of the left sacroiliac joint then a 22-gauge Quincke Needle advanced slowly under fluoroscopy time placed in the left sacroiliac joint, needle placement confirmed with AP and oblique and lateral view then after appropriate needle placement confirmed and after negative aspiration 0.5% Ropivacaine 3 mL and 30 mg of Depo-Medrol injected in the left sacroiliac joint after negative aspiration patient tolerated the procedure well that any complications and she will follow up in clinic 3 weeks
[2020-10-26] MEDS ORDERED: IV FLUID CONTINUATION 850 ML IV ONE (13:24)
[2020-10-26 13:41] VITALS: BP 125/68; PULSE 73
--- NOTE | 2020-10-26 14:10 | FL ---
EXAMINATION TYPE: FL guided pain mgmt statistic DATE OF EXAM: 10/26/2020 HISTORY: Fluoroscopy time 9 seconds of fluoroscopy provided. IMPRESSION: 1. Fluoroscopy time.
== END 2020-10-26 14:20 | disposition home or self-care (01) ==
LOC: ORPAIN 11:44
PROVIDERS: ATTEND Specialist
DX: M46.1 Sacroiliitis, not elsewhere classified (principal)
CPT/HCPCS: G0260; J2250; J1030; J3010; J2795

== ENCOUNTER → 2020-11-10 | Outpatient (CLI) | payer MEDICARE ==
[2020-11-10 10:51] VITALS: BP 145/73; PULSE 78; RESP 18; TEMP 98.1
--- NOTE | 2020-11-10 10:54 | P.PAINPG ---
Subjective Progress Note Date: 11/10/20 This is a follow-up visit for this 75 years old female with a chronic history of severe low back pain, he is diagnosed with lumbar spondylosis with lumbar facet arthropathy without myelopathy, and lumbar degenerative disc disease, patient had RFA bilateral L4-5 L5-S1 in 05/2020, she continued to have pain in the buttock area bilaterally , recently we have performed bilateral sacroiliac joint injection 2. Patient notes that the most recent sacroiliac joint injections were very very helpful for her, giving 90% relief at its peak. Although some of the pain is coming back she does feel better overall. She was hoping to have an ablation of the sacroiliac joint, however a mention that this is generally not covered by insurance. We did discuss the ablation that she had in May but she is unsure if that was helpful at all. she deny motor or sensory deficits she continue to use Neurontin 600 mg twice a day she denies any side effect of the medication Physical examination -Constitutiona : Cooperative , not in acute distress . -HEENT : nech : supple , no Lymphadenopathy , normal thyroid size . : eyes : no ptosis , no icterus, no photophobia . - neurologic : Cranial nerve II to XII intact , no focal neurological deffecit . -psychatric : alert , oriented X 3 , appropriate affect , intact judgment and insight . -Lymphatic : no Lymphadenopathy . - musculoskeltal : Lumber spine moter stegnth lower extremities ,thigh and legs 5/5 Right side , 5/5 Left side deep tendon reflexes : normal Knee Jerk , normal ankle Jerk lumber facet Loading Test =positive Right , positive Left Range of motion of the lumbar spine Flexion 30 degrees, extension 10 degrees strait leg raising test = positive at 45 degree Fabere test= positive Right , and positive LT . Sever tenderness over the Sacroiliac joint on the Right , and mild tenderness Left sides Gaenslen test= positive right ,and positive left . Seated flexion test= positive right ,and positive Left Distraction test= positive bilaterally MRI of the lumbar spine multilevel lumbar degenerative disc disease multilevel lumbar spondylosis and multilevel lumbar foraminal stenosis Assessment and plan=1-lumbar spondylosis with lumbar facet arthropathy without myelopathy. 2-lumbar degenerative disc disease. 3-lumbar foraminal stenosis. 4-bilateral sacroiliitis I had a discussion with the patient about steroid injections and how many she can have in the year, mentioning that we should not do more than 4 in a year. Patient understands and would like to have her sacroiliac joint injections repeated sometime in February during the holidays. - PQRS measures = - Patient's medications are documented in the chart. -Tobacco use is negative and counseling.Given. -Patient's has not received pneumococcal vaccine. -Advanced care planning discussed, patient not eligible. -Opiate contract not signed. -Pain positive and follow-up visit/procedure is scheduled. -Patient's blood pressure measured [130/80 ] , and documented in the record ,and patient will follow up with the primary care. -Patient's weight was measured and body mass index [ ] above the, normal limits and counseling was done. and patient instructed to follow-up with the primary care physician. -Patient was not identified as an unhealthy alcohol user I have spent 23 minutes on patient care today. The time was used to review the medical records including relevant urine studies and prescription history, review of the available imaging, evaluation and examination of the patient, coordination of care with the medical staff and if applicable referring physicians, as well as creation of the medical record. PQRS Measure Charge Sheet PQRS Narrative: Smoking Status Former smoker Hx Alcohol Use (MH) No Home Medications: Ambulatory Orders Levothyroxine Sodium [Synthroid] 150 mcg PO DAILY 05/31/17 Losartan [Cozaar] 50 mg PO BID 05/31/17 Multivitamins, Thera [Multivitamin (formulary)] 1 tab PO DAILY 05/31/17 Simvastatin [Zocor] 20 mg PO HS 05/31/17 Ibuprofen [Motrin] 800 mg PO Q8H PRN 06/10/20 Acetaminophen Tab [Tylenol] 325 mg PO DIRECTED PRN 07/07/20 Ibuprofen 200 mg PO DIRECTED PRN 07/07/20 Gabapentin 600 mg PO BID #60 tab 07/28/20 Acetaminophen/Diphenhydramine [Tylenol PM 500-25mg] 1 tab PO HS 10/22/20 Controlled Substance Measures - Controlled Substance Measures Is patient prescribed a controlled substance at discharge?: No
== END ==
LOC: PNWHC3 10:27
PROVIDERS: ATTEND Anesthesiology
DX: M47.816 Spondylosis without myelopathy or radiculopathy, lumbar region (principal); M51.36 Other intervertebral disc degeneration, lumbar region; M48.061 Spinal stenosis, lumbar region without neurogenic claudication; M46.1 Sacroiliitis, not elsewhere classified; Z87.891 Personal history of nicotine dependence
CPT/HCPCS: 99211

== ENCOUNTER 2021-02-22 12:24 | Day surgery (SDC) | payer MEDICARE ==
[2021-02-18 15:43] VITALS: BMI 29.7
[2021-02-22 12:59] VITALS: TEMP 97.1
[2021-02-22] MEDS: LACTATED RINGERS 1,000 ML IV SCH ×2 (13:01→13:02)
[2021-02-22] MEDS ORDERED: MIDAZOLAM 2 MG/2 ML VIAL ONE (13:03)
[2021-02-22] MEDS ORDERED: .fentaNYL (PF) 50 MCG/ML 2 ML AMP ONE (13:03)
[2021-02-22] MEDS ORDERED: methylPREDNISolone ACETATE 40 MG/ML 1 ML VIAL ONE (13:03)
[2021-02-22] MEDS ORDERED: ROPIVACAINE 5MG/ML 20ML VIAL ONE (13:03)
--- NOTE | 2021-02-22 13:18 | P.PCN ---
Date of Procedure: 02/22/21 Procedure(s) Performed: Procedure= Bilateral sacroiliac joints steroid injection under fluoroscopy guidance (fluoroscopy image stored on file in the radiology Department ) Preoperative diagnosis= 1-bilateral sacroiliitis 2-lumbar spondylosis with facet arthropathy Postoperative diagnosis=Same as preop Diagnosis . Complication = none Condition= stable Anesthesia= moderate sedation with intravenous Versed 2 mg , and fentanyl 100 micrograms . Indication for the procedure= patient complaining of low back pain , examination was positive for severe tenderness over the sacroiliac joints bilaterally and patient diagnosed with sacroiliitis, for this reason she was good candidate for sacroiliac joint steroid injection. Description of the procedure= procedure risk and benefits discussed with the patient, including but not limited, risk of infection and bleeding, and ALLERGIC reaction to the medication and not complete pain relief and patient agreed with the preceding patient taken to the operating room, placed in prone position or standard monitors applied to the patient then after induction of anesthesia back prepped with chlorhexidine 3 times , Then under strict sterile technique, first I did the right sacroiliac joint the which was identified under fluoroscopy guidance been local infiltration of the skin and subcu interstitial with lidocaine 1% then 22-gauge Quincke Needle advanced slowly under fluoroscopy and placed in the right sacroiliac joint needle placement confirmed with AP and oblique and lateral view and after appropriate needle placement confirmed and after negative aspiration, or heme , then Ropivacaine 0.5% 4 mL, and 20 mg of Depo-Medrol mixed together and injected in the right sacroiliac joint after negative aspiration patient tolerated the procedure well without any complication. Then the left sacroiliac joint steroid injection done under strict sterile technique local infiltration of the skin and subcu interstitial at the location of the left sacroiliac joint then a 22-gauge Quincke Needle advanced slowly under fluoroscopy time placed in the left sacroiliac joint, needle placement confirmed with AP and oblique and lateral view then after appropriate needle placement confirmed and after negative aspiration 0.5% Ropivacaine 4 mL and 20 mg of Depo-Medrol injected in the left sacroiliac joint after negative aspiration patient tolerated the procedure well that any complications and she will follow up in clinic 3 weeks
[2021-02-22] MEDS ORDERED: IV FLUID CONTINUATION 800 ML IV ONE (13:20)
[2021-02-22 13:23] VITALS: RESP 16
--- NOTE | 2021-02-22 13:37 | FL ---
EXAMINATION TYPE: FL guided pain mgmt statistic DATE OF EXAM: 02/22/2021 CLINICAL HISTORY: Bilateral sacroiliac joint pain. TECHNIQUE: Fluoroscopy. COMPARISON: None. FINDINGS: Fluoroscopic guidance was provided during pain relief procedure performed by Dr. Mcdonald . A total of 7 seconds of fluoroscopic time was utilized during the procedure and two spot images ar e acquired. Images acquired shows needle localization at the level of the inferior aspect bilateral sacroiliac joints. IMPRESSION: As Above.
[2021-02-22 13:43] VITALS: BP 149/76; PULSE 73
== END 2021-02-22 13:52 | disposition home or self-care (01) ==
LOC: ORPAIN 12:24
PROVIDERS: ATTEND Specialist
DX: M46.1 Sacroiliitis, not elsewhere classified (principal); M47.818 Spondylosis without myelopathy or radiculopathy, sacral and sacrococcygeal region
CPT/HCPCS: J2250; J1030; J3010; J2795; G0260; 99152

== ENCOUNTER → 2021-02-25 | Outpatient (CLI) | payer MEDICARE ==
--- NOTE | 2021-02-28 14:05 | MM ---
Reason for exam: screening (asymptomatic). Last mammogram was performed 1 year and 4 months ago. History: Patient is postmenopausal, history of other cancer, and is nulliparous. 2 benign excisional biopsies of the right breast, 1966. Physical Findings: A clinical breast exam by your physician is recommended on an annual basis and results should be correlated with mammographic findings. MG 3D Screening Mammo W/Cad Bilateral CC and MLO view(s) were taken. Prior study comparison: November 06, 2019, bilateral MG 3d screening mammo w/cad. June 03, 2018, bilateral MG 3d screening mammo w/cad. Finding: There are typically benign coarse, fine, diffuse/scattered calcifications in both breasts. No significant changes in finding since November 06, 2019 and June 03, 2018. ASSESSMENT: Benign, BI-RAD 2 RECOMMENDATION: Routine screening mammogram of both breasts in 1 year.
== END | disposition home or self-care (01) ==
LOC: RADMAMWWP 10:00
PROVIDERS: ATTEND Family Medicine
DX: Z12.31 Encounter for screening mammogram for malignant neoplasm of breast (principal); Z78.0 Asymptomatic menopausal state
CPT/HCPCS: 77063; 77067

== ENCOUNTER → 2021-03-07 | Outpatient (CLI) | payer MEDICARE ==
[2021-03-07 12:31] VITALS: BP 148/79; PULSE 79; RESP 18; TEMP 97.6
--- NOTE | 2021-03-07 14:48 | P.PN ---
Subjective Progress Note Date: 03/07/21 This is a follow-up visit for this 76 years old female with a chronic history of severe low back pain, she is diagnosed with lumbar spondylosis with lumbar facet arthropathy without myelopathy, and lumbar degenerative disc disease, and Bilateral sacroiliitis, recentely we have done bilateral sacroiliac joint steroid injection and this helped her low back pain significantly , even recently we have done RFA medial branch block lumbar area , denies any motor or sensory deficits she continue to use Neurontin 600 mg twice a day she denies any side effect of the medication, she hit today for medication refill and she is reporting that she has to pay more money if the prescription filled twice a day and it will be better to give her a refill for 3 times a day, continue to use Motrin and Tylenol when necessary, she is already done physical therapy , chiropractics ,and she is doing home exercise. Physical examination -Constitutiona : Cooperative , not in acute distress . -HEENT : nech : supple , no Lymphadenopathy , normal th yroid size . : eyes : no ptosis , no icterus, no photophobia . - neurologic : Cranial nerve II to XII intact , no focal neurological deffecit . -psychatric : alert , oriented X 3 , appropriate affect , intact judgment and insight . -Lymphatic : no Lymphadenopathy . - musculoskeltal : Lumber spine moter stegnth lower extremities ,thigh and legs 5/5 Right side , 5/5 Left side deep tendon reflexes : normal Knee Jerk , normal ankle Jerk lumber facet Loading Test =positive Right , positive Left Range of motion of the lumbar spine Flexion 30 degrees, extension 10 degrees strait leg raising test = positive at 45 degree Fabere test= positive Right , and positive LT . Sever tenderness over the Sacroiliac joint on the Right , and mild tenderness Left sides Gaenslen test= positive right ,and positive left . Seated flexion test= positive right ,and positive Left Distraction test= positive bilaterally MRI of the lumbar spine multilevel lumbar degenerative disc disease multilevel lumbar spondylosis and multilevel lumbar foraminal stenosis Assessment and plan=1-lumbar spondylosis with lumbar facet arthropathy without myelopathy. 2-lumbar degenerative disc disease. 3-lumbar foraminal stenosis. 4-bilateral sacroiliitis Pain improved after bilateral sacroiliac joint steroid injection, she is currently on Neurontin 600 mg twice a day and she is questioning if he can make it 3 times a day (she will Pay less as a copayment If she gets prescription for 3 times a day) I will change Neurontin to 400 grams every 8 hours dispends 90 with 2 refills - PQRS measures = - Patient's medications are documented in the chart. -Tobacco use is negative and counseling.Given. -Patient's has not received pneumococcal vaccine. -Advanced care planning discussed, patient not eligible. -Opiate contract not signed. -Pain positive and follow-up visit/procedure is scheduled. -Patient's blood pressure measured [148/79 ] , and documented in the record ,and patient will follow up with the primary care. -Patient's weight was measured and body mass index [ ] above the, normal limits and counseling was done. and patient instructed to follow-up with the primary care physician. -Patient was not identified as an unhealthy alcohol user Objective - Vital Signs Vital signs: Vital Signs Temp 97.6 F 03/07/21 12:06 Pulse 79 03/07/21 12:06 Resp 18 03/07/21 12:06 BP 148/79 03/07/21 12:06 Pulse Ox 96 03/07/21 12:06 Intake & Output 03/06/21 03/07/21 03/07/21 18:59 06:59 18:59 Weight 90.719 kg
== END ==
LOC: PNWHC3 11:20
PROVIDERS: ATTEND Specialist
DX: M47.816 Spondylosis without myelopathy or radiculopathy, lumbar region (principal); M51.36 Other intervertebral disc degeneration, lumbar region; M48.061 Spinal stenosis, lumbar region without neurogenic claudication; M46.1 Sacroiliitis, not elsewhere classified; Z87.891 Personal history of nicotine dependence
CPT/HCPCS: 99211

== ENCOUNTER → 2021-05-30 | Outpatient (CLI) | payer MEDICARE ==
[2021-05-30 14:29] VITALS: BP 145/68; PULSE 70; RESP 18; TEMP 98.4
--- NOTE | 2021-05-30 14:38 | P.PN ---
Subjective Progress Note Date: 05/30/21 Principal diagnosis: A 76 yr old female with a history of severe and chronic low back pain secondary to lumbar degenerative disc diseases and lumbar spondylosis with facet arthropathy presents today for medication refills and lower back pain evaluation. Patient states she experienced 60% pain relief for 3 weeks after a bilateral SI joint injection. Pain level is currently at 0 out of 10 in intensity when sitting but escalates as high as 6 out of 10 in intensity when standing or walking. Pain is dull/ achy in the lower aspects of the lumbar spine with radiation of sharp/ shooting pain towards the tailbone bilaterally. Pain is alleviated with medications, topicals, injections, alternating ice and heat, physical therapy last completed 01/06, chiropractic treatments in the past, use of a walker for ambulation, repositioning and rest. Interventional pain procedures completed include bilateral SI joint injection 02/2021 Patient is currently on Neurontin 400 mg #90 from this clinic Patient denies any side effects of the medication(s), denies excessive drowsiness or sleepiness, denies suicidal ideation and reports that the current pain medication is helping to control the pain and improve activities of daily living. Patient denies any motor or sensory deficits. Patient denies any fever or night sweats, denies any change in the bowel movements or urination. Physical Examination: -Constitutional: Cooperative. Not in acute distress . -HEENT: Neck is supple. No lymphadenopathy. No thyromegaly. Normal thyroid size. Eyes: No ptosis , no icterus, no photophobia. ENT: No auditory deficits. Normal oropharynx. No Thrush. - Respiratory: Chest clear to auscultations bilaterally. No wheezing. No rhonchi. - Cardiovascular: Regular rate and rhythm. S1 / S2 , no S3 , no S4. - Gastrointestinal: Abdomen soft no tenderness. Bowel sounds positive in all four quadrants. No organomegaly. - Genitourinary: Deferred. - Neurologic: Cranial nerve II to XII intact. No focal neurological deficits. - Psychatric: Alert & oriented x 3. Matching mood & appropriate affect. Judgment and insight intact. - Lymphatic: No Lymphadenopathy. - Musculoskeletal: Cervical spine: Muscle bulk/ tone/ strength in the bilateral upper extremities normal. Facet loading test cervical area positive. Lumbar spine: Motor bulk/ tone/ strength lower extremities , thigh and legs : 5/5 Deep tendon reflexes : Normal Knee Jerk. Normal Ankle Jerk . Vertebral body tenderness to palpation over Lumbar Facet Loading Test positive Straight Leg Raise: positive at 30 degrees right side/ left side Gaenslen's Test positive Sacral spine : Severe tenderness over the Sacroiliac joint: right side / left side Range of motion: Flexion of the lumbar spine <60 degrees Range of motion: Extension of the lumbar spine <20 degrees Gaenslen's Test positive Dioni test: positive right side / left side Assessment and plan: Chronic low back pain secondary to lumbar degenerative disc disease , lumbar spondylosis with facet arthropathy without myelopathy Chronic and current use of high-risk medication (Opioids). The patient was counseled about risk of opioid use, psychological risk associated with opioids and was orally counseled to not overuse , divert or sell medications. Pt is to store medication in a safe location. The patient is counseled against driving while using narcotic medications and also not to use alcohol or any illicit recreational drugs. Patient verbalized understanding that the lack of compliance will result in failure to renew narcotic prescription(s) as well as possible discharge from the clinic Diagnoses, prognosis and treatment options including but not limited to physical therapy, surgical interventions, interventional therapies and medication management including narcotics and adjuvant medication were discussed. All patient questions answered MAPS reviewed and it was appropriate. Prescription refill for Neurontin 400mg #90 with 1 refill. I have spent 31 minutes on patient care today. Dr Mcdonald was available by phone for the evaluation of this patient. The time was used to review the medical records including relevant urine studies and Prescription history (MAPs), review of the available imaging, evaluation and examination of the patient, coordination of care with the medical staff and if applicable referring physicians, as well as creation of the medical record Objective - Vital Signs Vital signs: Vital Signs Temp 98.4 F 05/30/21 14:19 Pulse 70 05/30/21 14:19 Resp 18 05/30/21 14:19 BP 145/68 05/30/21 14:19 Pulse Ox 97 05/30/21 14:19 Intake & Output 05/29/21 05/30/21 05/30/21 18:59 06:59 18:59 Weight 90.718 kg PQRS Measure Charge Sheet Mode of Arrival: Ambulatory, Wheelchair - Pain Location Lower Back Non-Pharmacological Interventions: Chiropractic Treatment, Heat, Home Exercise, Ice, Physical Therapy, Position/Reposition, Sitting, Stretching Pharmacological Interventions: Medication, PRN Medication, Topical Medication PQRS Narrative: Smoking Status Former smoker Blood Pressure 145/68 Pain Intensity [Lower Back] 6 Scale Used Numeric (1 - 10) Hx Alcohol Use (MH) No Home Medications: Ambulatory Orders Levothyroxine Sodium [Synthroid] 150 mcg PO DAILY 05/31/17 Losartan [Cozaar] 50 mg PO BID 05/31/17 Multivitamins, Thera [Multivitamin (formulary)] 1 tab PO DAILY 05/31/17 Simvastatin [Zocor] 20 mg PO HS 05/31/17 Ibuprofen [Motrin] 800 mg PO Q8H PRN 06/10/20 Acetaminophen [Tylenol Arthritis] 650 mg PO DIRECTED PRN 02/18/21 Gabapentin [Neurontin] 400 mg PO TID 30 Days #90 cap 05/30/21
== END ==
LOC: PNWHC3 13:31
PROVIDERS: ATTEND Physician Assistant Medical
DX: M51.36 Other intervertebral disc degeneration, lumbar region (principal); M47.816 Spondylosis without myelopathy or radiculopathy, lumbar region; G89.29 Other chronic pain; Z79.891 Long term (current) use of opiate analgesic; Z87.891 Personal history of nicotine dependence
CPT/HCPCS: 99211

== ENCOUNTER → 2021-07-25 | Outpatient (CLI) | payer MEDICARE ==
[2021-07-25 13:34] VITALS: BP 142/76; PULSE 79; RESP 18; TEMP 98.3
--- NOTE | 2021-07-25 13:51 | P.PN ---
Subjective Progress Note Date: 07/25/21 Principal diagnosis: A 76 yr old female with a history of severe and chronic low back pain secondary to lumbar degenerative disc diseases and lumbar spondylosis with facet arthropathy and BL Sacroiliitis presents today for medication refills. Pain level is currently at 8 out of 10 in intensity, localized to the lower lumbar spine/tailbone area of a sharp, stabbing, pressure type sensation, right greater than left for several years. Pain is provoked by standing and walking for periods of 15 minutes or more. She uses a walker for ambulation. Pain is alleviated with medications (Neurontin, Motrin OTC, Tylenol OTC), topicals, injections, ice, heat, physical therapy in December 2019, use of a walker for ambulation, massage therapy 1-1/2 years ago, use of a tilt table daily, laying on her left side and rest. Interventional pain procedures completed include bilateral SI joint injections Patient is currently on Neurontin 400 mg 3 times a day Patient denies any side effects of the medication(s), denies excessive drowsiness or sleepiness, denies suicidal ideation and reports that the current pain medication is helping to control the pain and improve activities of daily living. Patient denies any motor or sensory deficits. Patient denies any fever or night sweats, denies any change in the bowel movements or urination. Physical Examination: -Constitutional: Cooperative. Not in acute distress . -HEENT: Neck is supple. No lymphadenopathy. No thyromegaly. Normal thyroid size. Eyes: No ptosis , no icterus, no photophobia. ENT: No auditory deficits. Normal oropharynx. No Thrush. - Respiratory: Chest clear to auscultations bilaterally. No wheezing. No rhonchi. - Cardiovascular: Regular rate and rhythm. S1 / S2 , no S3 , no S4. - Gastrointestinal: Abdomen soft no tenderness. Bowel sounds positive in all four quadrants. No organomegaly. - Genitourinary: Deferred. - Neurologic: Cranial nerve II to XII intact. No focal neurological deficits. - Psychatric: Alert & oriented x 3. Matching mood & appropriate affect. Judgment and insight intact. - Lymphatic: No Lymphadenopathy. - Musculoskeletal: Cervical spine: Muscle bulk/ tone/ strength in the bilateral upper extremities normal. Facet loading test cervical area positive. Lumbar spine: Motor bulk/ tone/ strength lower extremities , thigh and legs : 5/5 Deep tendon reflexes : Normal Knee Jerk. Normal Ankle Jerk . Vertebral body tenderness to palpation over L5 Lumbar Facet Loading Test positive Straight Leg Raise: positive at 30 degrees right side/ left side Gaenslen's Test positive Sacral spine : Severe tenderness over the Sacroiliac joint: right side / left side Range of motion: Flexion of the lumbar spine <60 degrees Range of motion: Extension of the lumbar spine <20 degrees Gaenslen's Test positive Dioni test: positive right side / left side Assessment and plan: Chronic low back pain secondary to lumbar degenerative disc disease , lumbar spondylosis with facet arthropathy without myelopathy, BL Sacroiliitis All patient questions answered MAPS reviewed and it was appropriate. Prescription refill for Neurontin 400 mg #270 0 refills I have spent 31 minutes on patient care today. Dr Mcdonald was available by phone for the evaluation of this patient. The time was used to review the medical records including relevant urine studies and Prescription history (MAPs), review of the available imaging, evaluation and examination of the patient, coordination of care with the medical staff and if applicable referring physicians, as well as creation of the medical record Objective - Vital Signs Vital signs: Vital Signs Temp 98.3 F 07/25/21 13:26 Pulse 79 07/25/21 13:26 Resp 18 07/25/21 13:26 BP 142/76 07/25/21 13:26 Pulse Ox 96 07/25/21 13:26 PQRS Measure Charge Sheet Mode of Arrival: Ambulatory, Walker - Pain Location Bilateral Lower Back Non-Pharmacological Interventions: Heat, Ice, Inactivity, Massage, Sitting, Stretching Pharmacological Interventions: Medication, PRN Medication, Topical Medication PQRS Narrative: Smoking Status Former smoker Blood Pressure 142/76 Pain Intensity [Bilateral 8 Lower Back] Scale Used Numeric (1 - 10) Hx Alcohol Use (MH) No Home Medications: Ambulatory Orders Levothyroxine Sodium [Synthroid] 150 mcg PO DAILY 05/31/17 Losartan [Cozaar] 50 mg PO BID 05/31/17 Multivitamins, Thera [Multivitamin (formulary)] 1 tab PO DAILY 05/31/17 Simvastatin [Zocor] 20 mg PO HS 05/31/17 Ibuprofen [Motrin] 800 mg PO Q8H PRN 06/10/20 Acetaminophen [Tylenol Arthritis] 650 mg PO DIRECTED PRN 02/18/21 Gabapentin [Neurontin] 400 mg PO TID 90 Days #270 cap 07/25/21
== END ==
LOC: PNWHC3 13:00
PROVIDERS: ATTEND Specialist
DX: M51.36 Other intervertebral disc degeneration, lumbar region (principal); M47.816 Spondylosis without myelopathy or radiculopathy, lumbar region; G89.29 Other chronic pain; M46.1 Sacroiliitis, not elsewhere classified; Z87.891 Personal history of nicotine dependence
CPT/HCPCS: 99211

== ENCOUNTER 2021-07-28 12:45 | Day surgery (SDC) | payer MEDICARE ==
[2021-07-28] MEDS ORDERED: LIDOCAINE 1% (10MG/ML) FOR IV START INTRADERMA PRN (13:26)
[2021-07-28] MEDS ORDERED: LACTATED RINGERS 1,000 ML IV SCH (13:26)
[2021-07-28 13:36] VITALS: RESP 16; TEMP 97.8
[2021-07-28] MEDS ORDERED: MIDAZOLAM 2 MG/2 ML VIAL ONE (14:02)
[2021-07-28] MEDS ORDERED: ROPIVACAINE 5MG/ML 20ML VIAL ONE (14:02)
[2021-07-28] MEDS ORDERED: methylPREDNISolone ACETATE 40 MG/ML 1 ML VIAL ONE (14:02)
[2021-07-28] MEDS ORDERED: fentaNYL (PF) 50 MCG/ML 2 ML AMP ONE (14:02)
--- NOTE | 2021-07-28 14:17 | P.PCN ---
Date of Procedure: 07/28/21 Procedure(s) Performed: Procedure= Chapman injection lumbar paraspinal muscles, 4 on the right side, and 4 on the left side lumbar paraspinal muscles Preoperative diagnosis=1-myofascial pain syndrome lumbar area 2-sacroiliitis 3-lumbar degenerative disc disease 4-lumbar facet arthropathy Postoperative diagnosis=Same as preop Diagnosis . Complication = none Condition= stable Anesthesia= moderate sedation with intravenous Versed 2 mg , and fentanyl 100 micrograms . Indication for the procedure= patient complaining of low back pain , examination was positive for multiple trigger point in the lumbar paraspinal muscles. Description of the procedure= procedure risk and benefits discussed with the patient, including but not limited, risk of infection and bleeding, and ALLERGIC reaction to the medication and not complete pain relief and patient agreed with the preceding patient taken to the operating room, placed in prone position or standard monitors applied to the patient then after induction of anesthesia back prepped with chlorhexidine 3 times , and after that each of the trigger point that is identified in the preop holding area, both injected with mixture of ropivacaine 0.5% that was mixed with 40 mg of Depo-Medrol, mixed with 16 ML of ropivacaine, 2 ML of the mixture injected at each trigger point after negative aspiration, and there was no paresthesia during the injection, total of 4 trigger point injected on the right side lumbar paraspinal muscles ,and 4 on the left side lumbar paraspinal muscles, patient tolerated the procedure well without any complications, and she will follow up in the pain clinic in a few weeks
[2021-07-28] MEDS ORDERED: IV FLUID CONTINUATION 1,000 ML IV ONE (14:19)
[2021-07-28 14:40] VITALS: BP 140/74; PULSE 71
== END 2021-07-28 14:57 | disposition home or self-care (01) ==
LOC: ORPAIN 12:45
PROVIDERS: ATTEND Specialist
DX: M79.18 Myalgia, other site (principal); M46.1 Sacroiliitis, not elsewhere classified; M51.36 Other intervertebral disc degeneration, lumbar region; M47.896 Other spondylosis, lumbar region
CPT/HCPCS: 20553; J2250; J1030; J3010; J2795

== ENCOUNTER → 2021-10-11 | Outpatient (CLI) | payer MEDICARE ==
--- NOTE | 2021-10-11 10:53 | XR ---
EXAMINATION TYPE: XR ankle complete RT DATE OF EXAM: 10/11/2021 COMPARISON: NONE HISTORY: Pain FINDINGS: Three views of the ankle demonstrate the ankle mortise to be intact and symmetric. The joint spaces are preserved. The osseous structures are intact. Calcaneal spurs noted. IMPRESSION: 1. No definite acute fracture or dislocation, if symptoms persist follow-up study in 7 to 10 days wou ld be suggested.
== END | disposition home or self-care (01) ==
LOC: RADXRMAIN 10:31
PROVIDERS: ATTEND Family Medicine
DX: M25.571 Pain in right ankle and joints of right foot (principal)

== ENCOUNTER → 2021-10-17 | Outpatient (CLI) | payer MEDICARE ==
--- NOTE | 2021-10-17 15:11 | P.PAINPG ---
PQRS Measure Charge Sheet Comment: HISTORY OF PRESENT ILLNESS: 76 yr old female presents today with severe and chronic LBP secondary to DDD and facet arthropathy for medication refills and evaluation s/p TPIs of lumbar spine. Pt states she experienced 80% pain relief x 10 days s/p procedure. Pt states her pain level is 6/10 in intensity, localized in her lower lumbar spine, constant, sharp pain for years, w radiation towards the BLEs. Provoked w standing/ walking for periods of 15 min or more. Pain is alleviated with PT in 2020, ice, (Neurontin, Ibuprofen), topicals, sitting and rest. REVIEW OF ORGAN SYSTEMS: CONSTITUTIONAL: No fevers or chills. No recent weight loss. NEUROLOGICAL: + numbness and tingling along the distal extremities. No seizure disorders or headaches. MUSCULOSKELETAL: + pain PSYCHIATRIC: Denies current depression or suicidal thoughts. Physical Examinations : Constitutional : Cooperative , not in acute distress . Neurologic : Cranial nerve II to XII intact. No focal neurological deficits. Psychiatric : alert & oriented x 3. Matching mood & appropriate affect. Judgment & insight intact. Musculoskeletal : Cervical Spine Motor strength in the deltoid and biceps: Normal right side. Normal Left side Motor strength biceps and the wrist extensors: Normal right side . Normal left side Motor strength in the triceps muscle: Normal right side. Normal left side Deep tendon reflexes: Normal at the biceps. Normal at Brachioradialis. Normal at triceps Vertebral body tenderness to deep palpation over Cervical facet loading test: positive bilaterally Spurling test: positive bilaterally Neck distraction test: positive bilaterally Mikala sign: positive bilaterally Lumbar spine Motor strength lower extremities ,thigh and legs 5/5 Right side , 5/5 Left side Deep tendon reflexes : Normal Knee Jerk. Normal Ankle Jerk Vertebral body tenderness over L3, L4 Lumbar facet Loading Test: positive Right / positive Left Range of motion of the lumbar spine Flexion 30 degrees, extension 10 degrees Straight Leg Raise test: Left/ Right positive at degree Dioni test: positive right / positive left. Severe tenderness over the Sacroiliac joint on the Right / Left sides Gaenslen test: positive bilaterally Seated flexion test: positive bilaterally. Sacral spine : Severe tenderness over the Sacroiliac joint: right side / left side Range of motion: Flexion of the lumbar spine <60 degrees Range of motion: Extension of the lumbar spine <20 degrees Gaenslen's Test positive Carlos's Test positive Dioni test: positive right side / left side Thigh Thrust Test Sacral Thrust Test Assessment/ Plan : Lumbar DDD Recommendation of refilling Neurontin 400mg capsules #270 (12weeks) no refills. Use, side effects and adverse reactions discussed. Narcotic agreement schroeder points reiterated to pt whom acknowledged understanding. Risks, benefits of procedure discussed and patient verbalized understanding. Denies aspirin or anti- coagulant use or medical history of diabetes. Protocol for discontinuation/ continuation of medications meryl procedure discussed. All questions answered. I have spent greater than 30 minutes on patient care today. Dr Mcdonald was available by phone for the evaluation of this patient. The time was used to review the medical records including relevant urine studies and Prescription h istory (MAPs), review of the available imaging, evaluation and examination of the patient, coordination of care with the medical staff and if applicable referring physicians, as well as creation of the medical record PQRS Narrative: Smoking Status Former smoker Hx Alcohol Use (MH) No Home Medications: Ambulatory Orders Levothyroxine Sodium [Synthroid] 150 mcg PO DAILY 05/31/17 Losartan [Cozaar] 50 mg PO BID 05/31/17 Multivitamins, Thera [Multivitamin (formulary)] 1 tab PO DAILY 05/31/17 Simvastatin [Zocor] 20 mg PO HS 05/31/17 Ibuprofen [Motrin] 800 mg PO Q8H PRN 06/10/20 Acetaminophen [Tylenol Arthritis] 650 mg PO DIRECTED PRN 02/18/21 Gabapentin [Neurontin] 400 mg PO TID 90 Days #270 cap 10/17/21 Controlled Substance Measures - Controlled Substance Measures Is patient prescribed a controlled substance at discharge?: Yes When asked, does pt state using other controlled substances?: No If prescribed controlled substance>3 days was MAPS reviewed?: Yes If Rx opioid, was Start Talking consent form obtained?: Yes Was information provided regarding opioid addiction?: Yes
[2021-10-17 15:37] VITALS: BP 138/81; PULSE 81; RESP 18; TEMP 98.5
== END ==
LOC: PNWHC3 12:49
PROVIDERS: ATTEND Specialist
DX: M51.36 Other intervertebral disc degeneration, lumbar region (principal); Z87.891 Personal history of nicotine dependence
CPT/HCPCS: 99211

== ENCOUNTER → 2022-01-09 | Outpatient (CLI) | payer MEDICARE ==
[2022-01-09 13:16] VITALS: BP 144/74; PULSE 74; RESP 18; TEMP 98.2
--- NOTE | 2022-01-09 14:53 | P.PAINPG ---
PQRS Measure Charge Sheet Comment: A 76 yr old female with a history of severe and chronic low back pain secondary to lumbar degenerative disc diseases and lumbar spondylosis with facet arthropathy without myelopathy presents today for medication refills. Pain level is currently at 7/10 in intensity, constant, localized in the lower lumbar spine, sharp in character w shooting towards the BLEs. Pain is provoked by standing for periods of 15 min or more. Pain is alleviated with use of a cane or walker for ambulation, medications (gabapentin, Tylenol arthritis, Motrin), injections in the past, heat as needed, PT in the past which was too painful, home exercise regimen as tolerated, repositioning and rest. She states she underwent bilateral facet blocks of the medial branches of the lower lumbar spine on 2 occasions at [facility], of which she experienced 100% pain relief 1 day status post procedure(s). Will obtain records. Interventional pain procedures completed include BL SI injection, BL Lumbosacral TPIs Patient is currently on Neurontin 400mg TID, Ibuprofen 800mg TID Patient denies any side effects of the medication(s), denies excessive drowsiness or sleepiness, denies suicidal ideation and reports that the current pain medication is helping to control the pain and improve activities of daily living. Patient denies any motor or sensory deficits. Patient denies any fever or night sweats, denies any change in the bowel movements or urination. Physical Examination: -Constitutional: Cooperative. Not in acute distress . - Neurologic: Cranial nerve II to XII intact. No focal neurological deficits. - Psychatric: Alert & oriented x 3. Matching mood & appropriate affect. Judgment and insight intact. - Musculoskeletal: Cervical spine: Muscle bulk/ tone/ strength in the bilateral upper extremities normal Vertebral body tenderness to palpation over Spurling test positive Distraction test positive Facet loading test positive Thoracic spine Muscle bulk / tone/ strength in the bilateral paraspinal muscles normal Vertebral body tender to palpation over Facet loading test positive Lumbar spine: Motor bulk/ tone/ strength lower extremities , thigh and legs : 5/5 Deep tendon reflexes : Normal Knee Jerk. Normal Ankle Jerk . Vertebral body tenderness to palpation over Lumbar Facet Loading Test positive over BL L4-L5, L5-S1 with jump reflex Straight Leg Raise: positive at 30 degrees right side/ left side Gaenslen's Test positive Sacral spine : Severe tenderness over the Sacroiliac joint: right side / left side Range of motion: Flexion of the lumbar spine <60 degrees Range of motion: Extension of the lumbar spine <20 degrees Gaenslen's Test positive Carlos's Test positive Dioni test: positive right side / left side Thigh Thrust Test Sacral Thrust Test Assessment and plan: Chronic low back pain secondary to lumbar degenerative disc disease , lumbar spondylosis with facet arthropathy without myelopathy Recommendation of BL RFA L4-L5, L5-S1. Patient has had sufficient and optimal pain relief with prior MBB procedures. Risks, benefits of procedure discussed and pt verbalized understanding. Denies anticoagulant use or medical history of diabetes. Chronic and current use of high-risk medication (Opioids). The patient was counseled about risk of opioid use, psychological risk associated with opioids and was orally counseled to not overuse , divert or sell medications. Pt is to store medication in a safe location. The patient is counseled against driving while using narcotic medications and also not to use alcohol or any illicit recreational drugs. Patient verbalized understanding that the lack of compliance will result in failure to renew narcotic prescription(s) as well as possible discharge from the clinic Diagnoses, prognosis and treatment options including but not limited to physical therapy, surgical interventions, interventional therapies and medication management including narcotics and adjuvant medication were discussed. All patient questions answered MAPS reviewed and it was appropriate. Prescription refill for Neurontin 400mg #270, Ibuprofen 800mg #180 NR I have spent less than 30 minutes on patient care today. Dr Mcdonald was available by phone for the evaluation of this patient. The time was used to review the medical records including relevant urine studies and Prescription history (MAPs), review of the available imaging, evaluation and examination of the patient, coordination of care with the medical staff and if applicable referring physicians, as well as creation of the medical record PQRS Narrative: Smoking Status Former smoker Hx Alcohol Use (MH) No Home Medications: Ambulatory Orders Levothyroxine Sodium [Synthroid] 150 mcg PO DAILY 05/31/17 Losartan [Cozaar] 50 mg PO BID 05/31/17 Multivitamins, Thera [Multivitamin (formulary)] 1 tab PO DAILY 05/31/17 Simvastatin [Zocor] 20 mg PO HS 05/31/17 Ibuprofen [Motrin] 800 mg PO Q8H PRN 06/10/20 Acetaminophen [Tylenol Arthritis] 650 mg PO DIRECTED PRN 02/18/21 Gabapentin [Neurontin] 400 mg PO TID 90 Days #270 cap 01/09/22 Controlled Substance Measures - Controlled Substance Measures Is patient prescribed a controlled substance at discharge?: Yes When asked, does pt state using other controlled substances?: No If prescribed controlled substance>3 days was MAPS reviewed?: Yes If Rx opioid, was Start Talking consent form obtained?: Yes Was information provided regarding opioid addiction?: Yes
== END ==
LOC: PNWHC3 12:27
PROVIDERS: ATTEND Specialist
DX: M47.816 Spondylosis without myelopathy or radiculopathy, lumbar region (principal); M51.36 Other intervertebral disc degeneration, lumbar region; G89.29 Other chronic pain; Z79.891 Long term (current) use of opiate analgesic; Z87.891 Personal history of nicotine dependence
CPT/HCPCS: 80307; G0482; G0463; 99212

== ENCOUNTER → 2022-02-24 | Day surgery (SDC) | payer MEDICARE ==
[~2022-02-24] MED LIST changes: +LACTATED RINGERS 1,000 ML IV ONE; +LIDOCAINE 1% (10MG/ML) FOR IV START INTRADERMA PRN; +MIDAZOLAM 2 MG/2 ML VIAL ONE; +ROPIVACAINE 5 MG/ML 20 ML AMPULE ONE; +TRIAMCINOLONE ACETONIDE 40 MG/ML 1 ML VIAL ONE; +fentaNYL (PF) 50 MCG/ML 2 ML AMP ONE
[2022-02-24 12:42] VITALS: TEMP 97.5
--- NOTE | 2022-02-24 13:19 | P.PCN ---
Date of Procedure: 02/24/22 Description of Procedure: Pre- and Post-operative Diagnosis: Lumbar facet arthropathy, and lumbar spon dylosis without myelopathy. Procedure: Bilateral L4-5 radiofrequency thermocoagulation of medial branch under fluoroscopic guidance Bilateral L5-S1 dorsal ramus radiofrequency thermocoagulation under fluoroscopic guidance Surgeon: Cyndee Jimenez Anesthesia: Local: 1% Lidocaine, IV sedation : Midazolam 2 mg, and fentanyl 100 micrograms. Complications: None Estimated blood loss: None. Specimen removed: None Fluoroscopic image: Saved to patient electronic medical records. Indications for Procedure: The patient is well known to pain clinic for his chronic low back pain management. The lumbar facet loading test was positive with a clinical diagnosis of lumbar facet arthropathy. Patient had marked decrease in pain after the diagnostic medial branch procedure. Came here for radiofrequency ablation for longer pain relief. PROCEDURE DESCRIPTION: The patient was seen and identified in the preoperative area. Risks, benefits, complications, and alternatives were discussed with the patient. The patient agreed to proceed with the procedure and signed the consent. IV was started. Vital signs were stable. Patient was taken to the procedure room and timeout was completed. The patient was placed in the prone position on procedure table and a pillow was placed under the abdomen to reduce lumbar lordosis. The lumbosacral area was prepped and draped in the usual sterile fashion. Critical pause was taken. Vital signs were closely monitored during the procedure. The fluoroscopic camera was placed in the anteroposterior position to identify the junction of superior articular process and its corresponding injection with its transverse process of Right side L4, L5, S1, which were anesthetized with 1% lidocaine. We used 20-gauge 100-mm curved, sharp radiofrequency cannula with 10-mm active tip for the procedure. The first cannula was guided by fluoroscopy to the S1 superior articular process and its corresponding junction with its ala. The second cannula was guided by fluoroscopy into the L5 superior articular process and its corresponding junction with its transverse process and pedicle. The third cannula was guided by fluoroscopy into the L4 SAP and its corresponding junction with its transverse process and its pedicle. After confirmation of needle tip position on oblique view, each site underwent motor testing at 2 Hz and 0 to 2.5 volts, and there was good motor stimulation in the back and no radicular symptoms or paresthesias. After confirmation of motor testing, 0.5 mL of block solution injected at each site . Block solution contained 4 mL of 0.5% ropivacaine preservative free mixed with 40 MG of Kenalog. At this time, each site was ablated using continuous radiofrequency mode at 80 degrees Celsius for 90 seconds at each level. At the end of the procedure, each needle was retracted approximately 1 cm and the skin was infiltrated with 0.5% ropivacaine preservative free 1 ml at each site. Skin was cleansed and bandages were applied. Entire procedure repeated on the left side. Skin was cleansed and bandages were applied. Disposition : The patient tolerated the procedure very well. The patient was transferred to the recovery room and remained stable until discharged home. The patient was given detailed discharge instructions for infection, bleeding, and increased pain at the injection site, and was advised to seek immediate medical attention should significant side effects develop. The patient will be scheduled with Pain Clinic within 4 weeks.
[2022-02-24 13:26] VITALS: RESP 16
--- NOTE | 2022-02-24 13:30 | FL ---
EXAMINATION TYPE: FL guided pain mgmt statistic DATE OF EXAM: 02/24/2022 CLINICAL HISTORY: Low back pain. TECHNIQUE: Fluoroscopy. COMPARISON: None. FINDINGS: Fluoroscopic guidance was provided during pain relief procedure performed by Dr. Bernal. A total of 31 seconds of fluoroscopic time was utilized during the procedure and 6 spot images are a cquired. Images acquired shows needle localization at several levels in the lumbar spine. IMPRESSION: As Above.
[2022-02-24 13:36] VITALS: BP 153/80; PULSE 74
== END ==
LOC: ORPAIN 12:05
DX: M47.816 Spondylosis without myelopathy or radiculopathy, lumbar region (principal); G89.29 Other chronic pain; I10 Essential (primary) hypertension; E78.00 Pure hypercholesterolemia, unspecified; E03.9 Hypothyroidism, unspecified; K21.9 Gastro-esophageal reflux disease without esophagitis; Z90.49 Acquired absence of other specified parts of digestive tract; Z98.890 Other specified postprocedural states; Z79.1 Long term (current) use of non-steroidal anti-inflammatories (NSAID); Z79.02 Long term (current) use of antithrombotics/antiplatelets; Z79.891 Long term (current) use of opiate analgesic; Z87.891 Personal history of nicotine dependence; Z79.890 Hormone replacement therapy; Z79.899 Other long term (current) drug therapy
CPT/HCPCS: 64635; 64636 ×2; J2250; J3301; J3010; J2795

== ENCOUNTER → 2022-02-27 | Outpatient (CLI) | payer MEDICARE ==
--- NOTE | 2022-02-27 14:07 | BD ---
EXAMINATION TYPE: Axial Bone Density DATE OF EXAM: 02/27/2022 COMPARISON: 03.15.2015 CLINICAL HISTORY: 77 years year old Female. ICD-10 CODE: M85.88 oth bne density/structure disorder Height: 65 Weight: 211 FRAX RISK QUESTIONS: NOTHING TO NOTE HERE RISK FACTORS HISTORY OF: Postmenopausal woman: YES, AT 51 YRS OLD Take estrogen and/or progesterone medications: YES, FOR ABOUT 1 YR ONLY Hyperparathyroidism: NO Adrenal Insufficiency: NO MEDICATIONS: Thyroid Medications: YES, THYROID PRODUCT, FOR ABOUT 30 YRS Additional Medications: BP MED, STATIN FOR CHOLESTEROL, VIT D AND CALCIUM ALONG WITH MULTIVITAMIN, Additional History: HYPERTENSION, CHOLESTEROL, THYROID, OSTEOARTHRITIS, EXAM MEASUREMENTS: Bone mineral densitometry was performed using the [employer] System. Bone mineral density as measured about the Lumbar spine is: ----- L1-L4(G/cm2): 1.251 T Score Values are as follows: ----- L1: -0.3 ----- L2: 1.4 ----- L3: 1.1 ----- L4: 0.0 ----- L1-L4: 0.6 Bone mineral density has: Increased 10.4% since study of: 03.15.2015 Bone mineral density about the R hip (g/cm2): 0.901 Bone mineral density about the L hip (g/cm2): 0.969 T Score values are as follows: -----R Neck: 0.1 -----L Neck: 0.8 -----R Total: -0.8 -----L Total: -0.3 Bone mineral density has: Increased 2.7% since study of: 03.15.2015 FRAX%s: The graph provided illustrates a 6.8% chance for a major osteoporotic fx and a 0.5% chance fo r the hips probability for fx in 10 years time. IMPRESSION: Normal (Values between +1 and -1 indicate normal bone mass). Consider repeating this study in 5 year s or sooner if there is some new clinical indication. NOTE: T-SCORE=SD OF THE YOUNG ADULT MEAN.
--- NOTE | 2022-02-28 13:41 | MM ---
Reason for Exam: Screening (asymptomatic). Last screening mammogram was performed 12 month(s) ago. Patient History: Menarche at age 16. Patient has no children. Postmenopausal. Patient used Hormonal Contraceptives for 15 years. Estrogen and Progesterone for 2 months. 1966, Benign Excisional Biopsy on the right side. 1966, Benign Excisional Biopsy on the right side. Risk Values: Betty 5 year model risk: 2.7%. NCI Lifetime model risk: 5.8%. Prior Study Comparison: 06/03/2018 Bilateral Screening Mammogram, [facility]. 11/06/2019 Bilateral Screening Mammogram, [facility]. 02/25/2021 Bilateral Screening Mammogram, [facility]. Tissue Density: The breast tissue is heterogeneously dense. This may lower the sensitivity of mammography. Findings: Analyzed By CAD. There are benign-appearing round and dystrophic calcifications bilaterally redemonstrated. There is no suspicious group of microcalcifications or new suspicious mass in either breast. Overall Assessment: Benign, BI-RAD 2 Management: Screening Mammogram of both breasts in 1 year. Some advise bilateral breast ultrasound surveillance in patients with background dense tissue. A clinical breast exam by your physician is recommended on an annual basis and results should be correlated with mammographic findings. Electronically signed and approved by: Peña Cervantes M.D.
== END | disposition home or self-care (01) ==
LOC: RADBDWWP 13:01
PROVIDERS: ATTEND Obstetrics & Gynecology
DX: Z12.31 Encounter for screening mammogram for malignant neoplasm of breast (principal); M85.88 Other specified disorders of bone density and structure, other site; I10 Essential (primary) hypertension; Z78.0 Asymptomatic menopausal state
CPT/HCPCS: 77063; 77067; 77080

== ENCOUNTER → 2022-04-03 | Outpatient (CLI) | payer MEDICARE ==
[2022-04-03 13:38] VITALS: BP 114/70; PULSE 80; RESP 18; TEMP 97.9
--- NOTE | 2022-04-03 15:24 | P.PAINPG ---
PQRS Measure Charge Sheet Comment: A 77 yr old female w at side with a history of severe and chronic low back pain secondary to lumbar DDD and spondylosis with facet arthropathy without myelopathy presents today for evaluation s/p BL RFA L3-L5. Pt states she experienced 0 % pain relief s/p procedure. Pain level is provoked at 7 /10 in intensity, constant, localized in the lumbar spine, sore, achy in character w shooting towards the BLEs, L>R. Pain is provoked by standing/ walking. Pain is alleviated with PT in the past, home exercise daily, ice, medications (Neurontin, Motrin), topicals, repositioning and rest. Interventional pain procedures completed include BL RFA L3-L5 x2, BL SI injections Patient is currently on Motrin, Neurontin Patient denies any side effects of the medication(s), denies excessive drowsiness or sleepiness, denies suicidal ideation and reports that the current pain medication is helping to control the pain and improve activities of daily living. Patient denies any motor or sensory deficits. Patient denies any fever or night sweats, denies any change in the bowel movements or urination. Physical Examination: -Constitutional: Cooperative. Not in acute distress . - Neurologic: Cranial nerve II to XII intact. No focal neurological deficits. - Psychatric: Alert & oriented x 3. Matching mood & appropriate affect. Judgment and insight intact. - Musculoskeletal: Cervical spine: Muscle bulk/ tone/ strength in the bilateral upper extremities normal Vertebral body tenderness to palpation over Spurling test positive Distraction test positive Facet loading test positive Thoracic spine Muscle bulk / tone/ strength in the bilateral paraspinal muscles normal Vertebral body tender to palpation over Facet loading test positive Lumbar spine: Motor bulk/ tone/ strength lower extremities , thigh and legs : 5/5 Deep tendon reflexes : Normal Knee Jerk. Normal Ankle Jerk . Vertebral body tenderness to palpation over Lumbar Facet Loading Test positive TTP over BL L5 facets Straight Leg Raise: positive at 30 degrees right side/ left side Gaenslen's Test positive Sacral spine : Severe tenderness over the Sacroiliac joint: right side / left side Range of motion: Flexion of the lumbar spine <60 degrees Range of motion: Extension of the lumbar spine <20 degrees Gaenslen's Test positive Dioni test: positive right side / left side Thigh Thrust Test Sacral Thrust Test Assessment and plan: Chronic low back pain secondary to lumbar degenerative disc disease, spondylosis with facet arthropathy without myelopathy Recommendation of BL iliolumbar ligament injection. May need a series for optimal pain relief. Risks, benefits of procedure discussed and pt verbalized understanding. Admits to anticoagulant use or medical history of diabetes. Protocol for discontinuation/continuation of medications meryl procedure discussed. All patient questions answered I have spent less than 30 minutes on patient care today. Dr Mcdonald was available by phone for the evaluation of this patient. The time was used to review the medical records including relevant urine studies and Prescription history (MAPs), review of the available imaging, evaluation and examination of the patient, coordination of care with the medical staff and if applicable referring physicians, as well as creation of the medical record PQRS Narrative: Smoking Status Former smoker Hx Alcohol Use (MH) No Home Medications: Ambulatory Orders Levothyroxine Sodium [Synthroid] 150 mcg PO DAILY 05/31/17 Losartan [Cozaar] 50 mg PO BID 05/31/17 Multivitamins, Thera [Multivitamin (formulary)] 1 tab PO DAILY 05/31/17 Simvastatin [Zocor] 20 mg PO HS 05/31/17 Ibuprofen [Motrin] 800 mg PO Q8H PRN 06/10/20 Acetaminophen [Tylenol Arthritis] 650 mg PO DIRECTED PRN 02/18/21 Gabapentin [Neurontin] 400 mg PO TID 90 Days #270 cap 01/09/22 Controlled Substance Measures - Controlled Substance Measures Is patient prescribed a controlled substance at discharge?: No
== END ==
LOC: PNWHC3 12:24
PROVIDERS: ATTEND Specialist
DX: M47.816 Spondylosis without myelopathy or radiculopathy, lumbar region (principal); M51.36 Other intervertebral disc degeneration, lumbar region; Z87.891 Personal history of nicotine dependence
CPT/HCPCS: 99211

== ENCOUNTER → 2023-12-28 | Outpatient (CLI) | payer MEDICARE ==
--- NOTE | 2023-12-28 17:02 | XR ---
EXAMINATION TYPE: XR knee complete bilateral DATE OF EXAM: 12/28/2023 CLINICAL HISTORY: pain TECHNIQUE: Three views of the bilateral knees are obtained. COMPARISON: 09/30/2020 FINDINGS: There is no acute fracture/dislocation. The tri-compartment joint spaces appear severely narrowed. Associated subchondral sclerosis and spur formation. Significant progression since prior st udy. The overlying soft tissue appears unremarkable. IMPRESSION: There is no acute fracture or dislocation ICD 10 NO FRACTURE, INITIAL EVALUATION [facility], , 12/28/2023 5:00 PM
== END | disposition home or self-care (01) ==
LOC: RADXRMAIN 14:15
PROVIDERS: ATTEND Family Medicine
DX: S80.911A Unspecified superficial injury of right knee, initial encounter (principal)